=== PATIENT | female | born 1950 | race Hispanic/Latino ===

== ENCOUNTER 2017-11-16 23:01 | Inpatient (IN) | payer MEDICARE, OTHER ==
[~2017-11-16] VITALS: Ht 157.5 cm; Wt 68.2 kg
[2017-11-16 23:28] LABS: LYMPHOCYTES % (AUTO) 16.8 % (21.0-51.0); NUCLEATED RED BLOOD CELLS 0.1 % (0.0-0.19)
[2017-11-16 23:36] LABS: APPEARANCE,URINE Clear (CLEAR); BILIRUBIN,URINE Negative (NEGATIVE); COLOR,URINE Yellow (YELLOW); GLUCOSE, URINE (UA) >=1000 mg/dL (NEGATIVE); KETONES,URINE Negative (NEGATIVE); LEUKOCYTE ESTERASE ,URINE Negative (NEGATIVE); NITRATE,URINE Negative (NEGATIVE); OCCULT BLOOD,URINE Negative (NEGATIVE); PH,URINE 5.5 (5.0-8.0); PROTEIN,URINE Negative (NEGATIVE)
[2017-11-16 23:37] LABS: CREATININE 1.7 mg/dL (0.5-1.5); POTASSIUM 4.5 mmol/L (3.5-5.1)
[2017-11-16 23:41] LABS: BASOPHILS % (AUTO) 0.3 % (0.0-5.0); EOSINOPHILS % (AUTO) 1.3 % (0.0-8.0); HEMATOCRIT 28.4 % (36-48); MEAN CORPUSCULAR HEMOGLOBIN 35.9 pg (27.0-33.0); MEAN CORPUSCULAR VOLUME 99.6 fL (79-99); NEUTROPHILS % (AUTO) 75.6 % (40.0-77.0); PLATELET COUNT (AUTO) 44 K/uL (130-400); RED BLOOD CELL COUNT(AUTO) 2.85 MIL/uL (4.00-5.50); RED CELL DISTRIBUTION WIDTH 13.9 % (11.0-15.5); WHITE BLOOD COUNT (AUTO) 3.3 K/uL (4.8-10.8)
[2017-11-16 23:46] LABS: BACTERIA,URINE Rare /HPF (None Seen); MUCUS,URINE Moderate LPF (None Seen); RBC,URINE None Seen /HPF (0-1); SQUAMOUS EPITHELIAL CELL,UR Moderate /HPF (0-2); WBC,URINE None Seen /HPF (0-1)
[2017-11-16 23:51] LABS: ALBUMIN 3.3 g/dL (3.5-5.0); CREATINE KINASE MB 0.5 ng/mL (0.5-3.6); TOTAL PROTEIN, SERUM 9.5 g/dL (6.0-8.3)
[2017-11-16 23:55] LABS: PLATELET MORPHOLOGY COMMENT DECREASED
[2017-11-17] MEDS ORDERED: ONDANSETRON HCL MDV 20ML 2 MG/ML VIAL ONE (01:46)
[2017-11-17] MEDS ORDERED: SODIUM CHLORIDE 0.9% 1000ML 1,000 ML IV ONE ×2 (01:46→07:43)
[2017-11-17] MEDS ORDERED: KETOROLAC TROMETHAMINE 15MG/ML ONE (01:47)
[2017-11-17] MEDS ORDERED: ONDANSETRON ODT 4 MG TAB ONE (01:49)
[2017-11-17] MEDS ORDERED: INSULIN HUMULIN R 100 UNIT/ML 3ML ONE (02:37)
[2017-11-17] MEDS: SODIUM CHLORIDE 0.9% 1000ML 1,000 ML IV SCH ×3 (02:45→17:31)
[2017-11-17] MEDS ORDERED: KETOROLAC TROMETHAMINE 15MG/ML IM PRN (02:45)
[2017-11-17] MEDS ORDERED: POTASSIUM CHLORIDE 20MEQ/100ML 100 ML IV PRN (03:00)
[2017-11-17] MEDS ORDERED: GLUCAGON 1MG KIT 1 MG ML IM PRN (03:00)
[2017-11-17] MEDS ORDERED: POTASSIUM CHLORIDE 20 MEQ ERTAB PO PRN (03:00)
[2017-11-17] MEDS ORDERED: ONDANSETRON HCL 4 MG/2 ML VIAL IVP PRN (03:00)
[2017-11-17] MEDS ORDERED: LIDOCAINE HCL-MPF 1% 2ML VIAL IVP PRN (03:00)
[2017-11-17] MEDS ORDERED: DEXTROSE 50%-WATER 50 ML DISP.SYRIN IV PRN (03:00)
[2017-11-17] MEDS ORDERED: POTASSIUM CHLORIDE 10% ELIXIR 20 MEQ/15 ML UDCUP PO PRN (03:00)
[2017-11-17 06:25] LABS: CREATININE 1.5 mg/dL (0.5-1.5); POTASSIUM 4.5 mmol/L (3.5-5.1)
[2017-11-17] MEDS: INSULIN LISPRO 100 UNIT/ML 3ML SQ SCH ×4 (07:30→22:09)
[2017-11-17 08:33] VITALS: BP 133/58
[2017-11-17] MEDS ORDERED: ISOS30TA11 PO (08:56)
[2017-11-17] MEDS ORDERED: CHOL100040 PO (08:56)
[2017-11-17] MEDS ORDERED: ONDA4TAB4 PO (08:56)
[2017-11-17] MEDS ORDERED: INSLAN SQ (08:56)
[2017-11-17] MEDS ORDERED: FERR-82 PO (08:56)
[2017-11-17] MEDS ORDERED: PANT20TA PO (08:56)
[2017-11-17] MEDS ORDERED: LACT10SO32 PO (08:56)
[2017-11-17] MEDS ORDERED: INSU100I3 SQ (08:56)
[2017-11-17] MEDS ORDERED: FISH1CAP49 PO (08:56)
[2017-11-17] MEDS ORDERED: SPIR100T PO (08:56)
[2017-11-17] MEDS ORDERED: FURO40TA5 PO (08:56)
[2017-11-17] MEDS ORDERED: LORA10CA9 PO (08:56)
[2017-11-17] MEDS ORDERED: PROCALAMINE IV SOLUTION 1,000 ML IV SCH (12:00)
[2017-11-17 16:19] VITALS: BP 115/43
[2017-11-17 18:15] VITALS: BP 120/51
[2017-11-17 20:00] VITALS: BP 122/43
[2017-11-18] MEDS: SODIUM CHLORIDE 0.9% 1000ML 1,000 ML IV SCH ×4 (01:55→21:53)
[2017-11-18 04:00] VITALS: BP 105/45
[2017-11-18 05:30] LABS: HEMATOCRIT 25.1 % (36-48); MEAN CORPUSCULAR HEMOGLOBIN 36.9 pg (27.0-33.0); MEAN CORPUSCULAR HGB CONC 36.6 g/dL (32.0-36.0); NUCLEATED RED BLOOD CELLS 0.1 % (0.0-0.19); PLATELET COUNT (AUTO) 43 K/uL (130-400); RED BLOOD CELL COUNT(AUTO) 2.49 MIL/uL (4.00-5.50); WHITE BLOOD COUNT (AUTO) 2.5 K/uL (4.8-10.8)
[2017-11-18 05:44] LABS: CREATININE 1.3 mg/dL (0.5-1.5); POTASSIUM 4.2 mmol/L (3.5-5.1)
[2017-11-18] MEDS: INSULIN LISPRO 100 UNIT/ML 3ML SQ SCH ×4 (06:09→21:55)
[2017-11-18 07:00] VITALS: BP 97/43
[2017-11-18 08:02] LABS: EOSINOPHILS % (MANUAL) 2 % (1-6); LYMPHOCYTES % (MANUAL) 28 % (22-44); MONOCYTES % (MANUAL) 8 % (2-9); SEGMENTED NEUTROPHILS % 62 % (40-70)
[2017-11-18 08:03] LABS: MAN.DIFF COMMENT-IMPRESSION MANUAL DIFFERENTIAL; PLATELET MORPHOLOGY COMMENT MARKED DECREASED
[2017-11-18 11:00] VITALS: BP 123/44
[2017-11-18 11:00] LABS: AMYLASE 94 U/L (25-115); LIPASE 496 U/L (114-286)
[2017-11-18 15:00] VITALS: BP 115/54
[2017-11-18 20:00] VITALS: BP 116/45
[2017-11-18 22:21] LABS: % IRON SATURATION 46.9 % (22-44)
[2017-11-19] VITALS: BP 116/48
[2017-11-19 04:00] VITALS: BP 116/49
[2017-11-19 05:31] LABS: BASOPHILS % (AUTO) 0.7 % (0.0-5.0); EOSINOPHILS % (AUTO) 1.2 % (0.0-8.0); HEMATOCRIT 24.8 % (36-48); LYMPHOCYTES % (AUTO) 28.1 % (21.0-51.0); MEAN CORPUSCULAR HEMOGLOBIN 35.7 pg (27.0-33.0); MEAN CORPUSCULAR HGB CONC 35.5 g/dL (32.0-36.0); MEAN CORPUSCULAR VOLUME 100.6 fL (79-99); MONOCYTES % (AUTO) 7.6 % (3.0-13.0); NEUTROPHILS % (AUTO) 62.4 % (40.0-77.0); NUCLEATED RED BLOOD CELLS 0.1 % (0.0-0.19); PLATELET COUNT (AUTO) 41 K/uL (130-400); RED BLOOD CELL COUNT(AUTO) 2.46 MIL/uL (4.00-5.50); RED CELL DISTRIBUTION WIDTH 13.9 % (11.0-15.5); WHITE BLOOD COUNT (AUTO) 2.2 K/uL (4.8-10.8)
[2017-11-19 05:37] LABS: CREATININE 1.1 mg/dL (0.5-1.5); POTASSIUM 3.8 mmol/L (3.5-5.1)
[2017-11-19] MEDS: SODIUM CHLORIDE 0.9% 1000ML 1,000 ML IV SCH (05:38)
[2017-11-19 06:03] LABS: BAND NEUTROPHILS % (MANUAL) 4 % (0-2); LYMPHOCYTES % (MANUAL) 12 % (22-44); MONOCYTES % (MANUAL) 12 % (2-9); SEGMENTED NEUTROPHILS % 72 % (40-70)
[2017-11-19 06:04] LABS: MAN.DIFF COMMENT-IMPRESSION MANUAL DIFFERENTIAL; PLATELET MORPHOLOGY COMMENT MARKED DECREASED
[2017-11-19] MEDS: INSULIN LISPRO 100 UNIT/ML 3ML SQ SCH ×3 (06:59→16:30)
[2017-11-19 08:02] VITALS: BP 117/49
[2017-11-19 12:11] VITALS: BP 115/50
[2017-11-19 16:24] VITALS: BP 127/49
== END 2017-11-19 16:45 | disposition home or self-care (01) | DRG 439 ==
LOC: EDH 23:01 → EDHIP 11-17 02:00 → 4CH 11-17 16:57
PROVIDERS: ADMIT Family Medicine; ATTEND Family Medicine
DX: K85.90 Acute pancreatitis without necrosis or infection, unspecified (principal); D61.818 Other pancytopenia; N17.9 Acute kidney failure, unspecified; E87.8 Other disorders of electrolyte and fluid balance, not elsewhere classified; E87.1 Hypo-osmolality and hyponatremia; E11.65 Type 2 diabetes mellitus with hyperglycemia; K74.60 Unspecified cirrhosis of liver; D73.1 Hypersplenism; E78.5 Hyperlipidemia, unspecified; E86.0 Dehydration; I10 Essential (primary) hypertension; Z79.4 Long term (current) use of insulin; Z82.49 Family history of ischemic heart disease and other diseases of the circulatory system; Z83.3 Family history of diabetes mellitus
CPT/HCPCS: 36415; 74176; 80048; 80053; 80061; 81001; 82140; 82150; 82550; 82553; 82607; 82728; 82746; 82948; 83540; 83550; 83690; 84484; 85007; 85025; 85060; 93005; J1815; J1885; J7030

== ENCOUNTER → 2018-02-18 | Outpatient (CLI) | payer OTHER ==
[~2018-02-18] MED LIST: ALBUMIN (HUMAN) 25% 200 ML IV ONE; CHOL100040 PO; FERR-82 PO; FISH1CAP49 PO; FURO40TA5 PO; INSLAN SQ; INSU100I3 SQ; ISOS30TA11 PO; LACT10SO32 PO; LIDOCAINE HCL MPF 1% 5ML VIAL ONE; LORA10CA9 PO; ONDA4TAB4 PO; PANT20TA PO; SPIR100T PO
[2018-02-18 08:52] LABS: BASOPHILS % (AUTO) 0.6 % (0.0-5.0); EOSINOPHILS % (AUTO) 2.6 % (0.0-8.0); HEMATOCRIT 24.6 % (36-48); LYMPHOCYTES % (AUTO) 21.9 % (21.0-51.0); MEAN CORPUSCULAR HGB CONC 34.8 g/dL (32.0-36.0); MEAN CORPUSCULAR VOLUME 103.5 fL (79-99); NEUTROPHILS % (AUTO) 68.9 % (40.0-77.0); PLATELET COUNT (AUTO) 55 K/uL (130-400); RED BLOOD CELL COUNT(AUTO) 2.38 MIL/uL (4.00-5.50); RED CELL DISTRIBUTION WIDTH 13.9 % (11.0-15.5); WHITE BLOOD COUNT (AUTO) 2.6 K/uL (4.8-10.8)
[2018-02-18 09:04] LABS: ALBUMIN 2.8 g/dL (3.5-5.0); BILIRUBIN,TOTAL 1.1 mg/dL (0.2-1.0); CREATININE 1.2 mg/dL (0.5-1.5); TOTAL PROTEIN, SERUM 8.2 g/dL (6.0-8.3)
[2018-02-18 09:05] LABS: INR 1.02 (0.85-1.15); PROTHROMBIN TIME 10.7 SEC (9.6-11.6)
[2018-02-18 09:53] LABS: BAND NEUTROPHILS % (MANUAL) 1 % (0-2); BASOPHILS % (MANUAL) 1 % (0-2); EOSINOPHILS % (MANUAL) 1 % (1-6); LYMPHOCYTES % (MANUAL) 20 % (22-44); MONOCYTES % (MANUAL) 9 % (2-9); SEGMENTED NEUTROPHILS % 68 % (40-70)
[2018-02-18 09:54] LABS: MAN.DIFF COMMENT-IMPRESSION MANUAL DIFFERENTIAL; PLATELET MORPHOLOGY COMMENT DECREASED
[2018-02-18 13:07] LABS: BF LYMPHOCYTE 21 %; BF MESOTHELIAL 52 %; BF MONOCYTE 7 %
[2018-02-18 13:08] LABS: APPEARANCE BODY FLUID CLEAR (CLEAR); BODY FLUID WBC 91 /cu. mm.; COLOR,BODY FLUID YELLOW (LT YELLOW); SPECIMENTYPE,BODY FLUID ASCITES; TOTAL VOLUME,BODY FLUID 3500 mL
[2018-02-18 13:09] LABS: BODY FLUID RBC 118 /cu. mm.
== END | disposition home or self-care (01) ==
LOC: RAH 08:00
PROVIDERS: ATTEND Internal Medicine Gastroenterology
DX: R18.8 Other ascites (principal); I10 Essential (primary) hypertension; E78.5 Hyperlipidemia, unspecified; K21.9 Gastro-esophageal reflux disease without esophagitis; E11.9 Type 2 diabetes mellitus without complications; K74.60 Unspecified cirrhosis of liver; D64.9 Anemia, unspecified; Z79.899 Other long term (current) drug therapy; Z83.3 Family history of diabetes mellitus; Z79.4 Long term (current) use of insulin; Z98.890 Other specified postprocedural states
CPT/HCPCS: 36415; 49083; 80053; 82105; 82150; 83690; 85025; 85610; 86704; 86706; 86708; 87071; 87205; 88108; 88305; 89051; J3490; P9046

== ENCOUNTER → 2018-02-22 | Outpatient (CLI) | payer OTHER ==
[~2018-02-22] MED LIST changes: -ALBUMIN (HUMAN) 25% 200 ML IV ONE; -LIDOCAINE HCL MPF 1% 5ML VIAL ONE
== END | disposition home or self-care (01) ==
LOC: RAH 09:02
PROVIDERS: ATTEND Internal Medicine Gastroenterology
DX: R18.8 Other ascites (principal); K85.00 Idiopathic acute pancreatitis without necrosis or infection; K74.60 Unspecified cirrhosis of liver
CPT/HCPCS: 76700; 93975

== ENCOUNTER 2018-06-22 08:13 | Day surgery (SDC) | payer OTHER ==
[2018-06-22] VITALS (7 sets, daily range): BP systolic 85–108; BP diastolic 25–48
[~2018-06-22 08:13] MED LIST changes: +CALC-190 PO; -INSU100I3 SQ; +SODIUM CHLORIDE 0.9% 1000ML 1,000 ML IV ONE; +insulin SQ
[2018-06-22] MEDS ORDERED: INSU100I21 SQ (09:41)
[2018-06-22] MEDS ORDERED: NPH,100I SQ (09:41)
[2018-06-22] MEDS ORDERED: PROP10TA10 PO (09:41)
== END 2018-06-22 11:40 | disposition home or self-care (01) ==
LOC: DAH 08:13
PROVIDERS: ATTEND Internal Medicine
DX: I85.00 Esophageal varices without bleeding (principal); K74.60 Unspecified cirrhosis of liver; K31.89 Other diseases of stomach and duodenum; K25.9 Gastric ulcer, unspecified as acute or chronic, without hemorrhage or perforation; I10 Essential (primary) hypertension; E78.5 Hyperlipidemia, unspecified; E11.9 Type 2 diabetes mellitus without complications; D64.9 Anemia, unspecified; K64.9 Unspecified hemorrhoids; R18.8 Other ascites; K21.9 Gastro-esophageal reflux disease without esophagitis; Z98.890 Other specified postprocedural states; Z79.899 Other long term (current) drug therapy; Z79.4 Long term (current) use of insulin
CPT/HCPCS: 43244; 82948 ×2; 93005; A4606; J7030

== ENCOUNTER → 2018-08-13 | Outpatient (CLI) | payer OTHER ==
[~2018-08-13] MED LIST changes: +INSU100I21 SQ; -ISOS30TA11 PO; +NPH,100I SQ; -ONDA4TAB4 PO; +PROP10TA10 PO; -SODIUM CHLORIDE 0.9% 1000ML 1,000 ML IV ONE; -insulin SQ
== END | disposition home or self-care (01) ==
LOC: RAH 08:21
PROVIDERS: ATTEND Internal Medicine Gastroenterology
DX: R18.8 Other ascites (principal); Z88.9 Allergy status to unspecified drugs, medicaments and biological substances
CPT/HCPCS: 76700; 93975

== ENCOUNTER → 2019-02-01 | Outpatient (CLI) | payer OTHER | END | disposition home or self-care (01) | LOC: RAH 08:20 | PROVIDERS: ATTEND Internal Medicine Gastroenterology | DX: N28.89 Other specified disorders of kidney and ureter (principal); R16.1 Splenomegaly, not elsewhere classified; R18.8 Other ascites | CPT/HCPCS: 76700; 93975 ==

== ENCOUNTER → 2019-09-02 | Outpatient (CLI) | payer OTHER ==
[~2019-09-02] MED LIST changes: +ALBUMIN (HUMAN) 25% 200 ML IV SCH
[2019-09-02 11:28] LABS: BASOPHILS % (AUTO) 0.5 % (0.0-5.0); EOSINOPHILS % (AUTO) 0.8 % (0.0-8.0); HEMATOCRIT 33.9 % (36-48); LYMPHOCYTES % (AUTO) 12.2 % (21.0-51.0); MEAN CORPUSCULAR HEMOGLOBIN 30.7 pg (27.0-33.0); MEAN CORPUSCULAR HGB CONC 30.1 g/dL (32.0-36.0); MEAN CORPUSCULAR VOLUME 102.1 fL (79-99); MONOCYTES % (AUTO) 10.1 % (3.0-13.0); NEUTROPHILS % (AUTO) 75.9 % (40.0-77.0); PLATELET COUNT (AUTO) 40 K/uL (130-400); RED BLOOD CELL COUNT(AUTO) 3.32 MIL/uL (4.00-5.50); RED CELL DISTRIBUTION WIDTH 16.1 % (11.0-15.5); WHITE BLOOD COUNT (AUTO) 3.8 K/uL (4.8-10.8)
[2019-09-02 11:37] LABS: INR 1.14 (0.85-1.15); PROTHROMBIN TIME 11.9 SEC (9.6-11.6)
--- NOTE | 2019-09-02 11:40 | NUR ---
U/S GD PARACENTESIS PROCEDURE PERFORMED BY DR COLVIN. PUNCTURE SITE RIGHT LOWER QUADRANT OF ABDOMEN AND PATIENT TOLERATED PROCEDURE WELL. TOTAL REMOVED 8.2 LITERS OF CLOUDY YELLOW ASCITES FLUID. END OF PROCEDURE AT 1240. CATHETER REMOVED AND DRESSING APPLIED. NO BLEEDING NOTED. ALBUMIN 25% 50 GRAMS GIVEN DURING PROCEDURE PER [facility] [place] ALBUMIN PROTOCOL. DISCHARGE INSTRUCTIONS GIVEN TO PATIENT. PATIENT VERBALIZED UNDERSTANDING. PT DISCHARGED AMBULATORY, STABLE, AAO X3 WITH NO C/O PAIN. SPECIMEN SENT TO LAB.
[2019-09-02 12:02] LABS: BILIRUBIN,TOTAL 1.6 mg/dL (0.2-1.0); CREATININE 5.6 mg/dL (0.5-1.5); POTASSIUM 4.6 mmol/L (3.5-5.1); TOTAL PROTEIN, SERUM 7.6 g/dL (6.0-8.3)
[2019-09-02 13:04] LABS: PLATELET MORPHOLOGY COMMENT MARKED DECREASE
[2019-09-02 15:08] LABS: APPEARANCE BODY FLUID SLIGHTLY CLOUDY (CLEAR); COLOR,BODY FLUID YELLOW (LT YELLOW); SPECIMENTYPE,BODY FLUID ASCITES
[2019-09-02 15:09] LABS: TOTAL VOLUME,BODY FLUID 8200 mL
[2019-09-02 15:27] LABS: BODY FLUID RBC 103 /cu. mm.; BODY FLUID WBC 38 /cu. mm.
[2019-09-02 15:31] LABS: BF LYMPHOCYTE 41 %; BF MESOTHELIAL 22 %
== END ==
LOC: RAH 10:09
PROVIDERS: ATTEND Internal Medicine Gastroenterology
DX: R18.8 Other ascites (principal); K74.60 Unspecified cirrhosis of liver; I10 Essential (primary) hypertension; E78.5 Hyperlipidemia, unspecified; E11.9 Type 2 diabetes mellitus without complications; Z98.890 Other specified postprocedural states; Z79.4 Long term (current) use of insulin; Z79.899 Other long term (current) drug therapy; Z82.49 Family history of ischemic heart disease and other diseases of the circulatory system; Z83.3 Family history of diabetes mellitus
CPT/HCPCS: 36415; 49083; 80053; 85025; 85610; 87071; 87205; 89051; A4215; P9047; 88108; 88305

== ENCOUNTER → 2019-09-14 | Outpatient (CLI) | payer OTHER ==
--- NOTE | 2019-09-14 11:15 | NUR ---
U/S GD PARACENTESIS PROCEDURE PERFORMED BY DR ROMERO. PUNCTURE SITE LEFT LOWER QUADRANT OF ABDOMEN AND PATIENT TOLERATED PROCEDURE WELL. TOTAL REMOVED 9.0 LITERS OF CLOUDY YELLOW ASCITES FLUID. END OF PROCEDURE AT 1150. CATHETER REMOVED AND DRESSING APPLIED. NO BLEEDING NOTED. ALBUMIN 25% 50 GRAMS GIVEN DURING PROCEDURE [place] [facility] [place]. DISCHARGE INSTRUCTIONS GIVEN TO PATIENT. PATIENT VERBALIZED UNDERSTANDING. PT DISCHARGED AMBULATORY, STABLE, AAO X3 WITH NO C/O PAIN. PIV DC'D, BANDAID APPLIED, CLEAN DRY AND INTACT. SPECIMEN SENT TO LAB.
[2019-09-14 16:41] LABS: APPEARANCE BODY FLUID CLEAR (CLEAR); COLOR,BODY FLUID YELLOW (LT YELLOW); SPECIMENTYPE,BODY FLUID ASCITES; TOTAL VOLUME,BODY FLUID 9000 mL
[2019-09-14 16:42] LABS: BODY FLUID RBC 95 /cu. mm.; BODY FLUID WBC 39 /cu. mm.
[2019-09-14 17:11] LABS: BF LYMPHOCYTE 31 %; BF MESOTHELIAL 39 %; BF MONOCYTE 6 %
== END | disposition home or self-care (01) ==
LOC: RAH 08:00
PROVIDERS: ATTEND Internal Medicine Gastroenterology
DX: R18.8 Other ascites (principal); K74.60 Unspecified cirrhosis of liver; Z79.4 Long term (current) use of insulin; Z79.899 Other long term (current) drug therapy; Z83.3 Family history of diabetes mellitus; Z82.49 Family history of ischemic heart disease and other diseases of the circulatory system
CPT/HCPCS: 49083; 87071; 87205; 89051; 96365; A4215; P9046; 88108; 88305

== ENCOUNTER → 2019-09-21 | Outpatient (CLI) | payer OTHER, MEDICARE ==
--- NOTE | 2019-09-21 10:15 | NUR ---
U/S GD PARACENTESIS PROCEDURE PERFORMED BY DR. ROMERO. PUNCTURE SITE LEFT LOWER QUADRANT OF ABDOMEN AND PATIENT TOLERATED PROCEDURE WELL. TOTAL REMOVED 9.3 LITERS OF CLOUDY BLOOD TINGED ASCITES FLUID. END OF PROCEDURE AT 1100. CATHETER REMOVED AND DRESSING APPLIED. NO BLEEDING NOTED. ALBUMIN 25% 50 GRAMS GIVEN DURING PROCEDURE PER [facility] [place]. PIV DC'D, BANDAID APPLIED, DRESSING DRY AND INTACT. DISCHARGE INSTRUCTIONS GIVEN TO PATIENT. PATIENT VERBALIZED UNDERSTANDING. PT DISCHARGED AMBULATORY, STABLE, AAO X3 WITH NO C/O PAIN. SPECIMEN SENT TO LAB.
[2019-09-21 13:41] LABS: APPEARANCE BODY FLUID CLOUDY (CLEAR); BODY FLUID WBC 38 /cu. mm.; COLOR,BODY FLUID DARK YELLOW (LT YELLOW); SPECIMENTYPE,BODY FLUID ASCITES; TOTAL VOLUME,BODY FLUID 9300 mL
[2019-09-21 13:42] LABS: BODY FLUID RBC 4175 /cu. mm.
[2019-09-21 13:45] LABS: BF LYMPHOCYTE 19 %; BF MESOTHELIAL 67 %; BF MONOCYTE 8 %
== END ==
LOC: RAH 09:02
PROVIDERS: ATTEND Internal Medicine Gastroenterology
DX: R18.8 Other ascites (principal)
CPT/HCPCS: 49083; 87071; 87205; 88108; 89051; 96365; A4215; P9046

== ENCOUNTER → 2019-09-28 | Outpatient (CLI) | payer OTHER, MEDICARE ==
[~2019-09-28] MED LIST changes: +ALBUMIN (HUMAN) 25% 200 ML IV PRN; -ALBUMIN (HUMAN) 25% 200 ML IV SCH
--- NOTE | 2019-09-28 11:00 | NUR ---
U/S GD PARACENTESIS PROCEDURE PERFORMED BY DR. ROMERO. PUNCTURE SITE LEFT LOWER QUADRANT OF ABDOMEN AND PATIENT TOLERATED PROCEDURE WELL. TOTAL REMOVED 9.5 LITERS OF CLOUDY BLOOD TINGED ASCITES FLUID. END OF PROCEDURE AT 1030. CATHETER REMOVED AND DRESSING APPLIED. NO BLEEDING NOTED. ALBUMIN 25% 50 GRAMS GIVEN DURING PROCEDURE PER [facility] [place] ALBUMIN PROTOCOL. PIV DC'D, BANDAID APPLIED, DRESSING DRY AND INTACT. DISCHARGE INSTRUCTIONS GIVEN TO PATIENT. PATIENT VERBALIZED UNDERSTANDING. PT DISCHARGED AMBULATORY, STABLE, AAO X3 WITH NO C/O PAIN. SPECIMEN SENT TO LAB.
[2019-09-28 15:45] LABS: APPEARANCE BODY FLUID CLOUDY (CLEAR); COLOR,BODY FLUID LT YELLOW (LT YELLOW); SPECIMENTYPE,BODY FLUID ASCITES
[2019-09-28 15:46] LABS: BODY FLUID RBC 453 /cu. mm.; BODY FLUID WBC 22 /cu. mm.; TOTAL VOLUME,BODY FLUID 9500 mL
[2019-09-28 15:54] LABS: BF LYMPHOCYTE 31 %; BF MONOCYTE 2 %
== END | disposition home or self-care (01) ==
LOC: RAH 08:30
PROVIDERS: ATTEND Internal Medicine Gastroenterology
DX: R18.8 Other ascites (principal); Z79.4 Long term (current) use of insulin; Z79.899 Other long term (current) drug therapy; Z83.3 Family history of diabetes mellitus; Z82.49 Family history of ischemic heart disease and other diseases of the circulatory system
CPT/HCPCS: 49083; 87071; 87205; 88108; 89051; P9046

== ENCOUNTER → 2019-10-12 | Outpatient (CLI) | payer OTHER, MEDICARE ==
[~2019-10-12] MED LIST changes: -ALBUMIN (HUMAN) 25% 200 ML IV PRN; +ALBUMIN (HUMAN) 25% 200 ML IV SCH
[2019-10-12 08:29] LABS: BASOPHILS % (AUTO) 1.2 % (0.0-5.0); HEMATOCRIT 31.4 % (36-48); LYMPHOCYTES % (AUTO) 12.1 % (21.0-51.0); MEAN CORPUSCULAR HEMOGLOBIN 31.8 pg (27.0-33.0); MEAN CORPUSCULAR HGB CONC 31.8 g/dL (32.0-36.0); MONOCYTES % (AUTO) 12.1 % (3.0-13.0); NEUTROPHILS % (AUTO) 71.3 % (40.0-77.0); PLATELET COUNT (AUTO) 38 K/uL (130-400); RED BLOOD CELL COUNT(AUTO) 3.14 MIL/uL (4.00-5.50); RED CELL DISTRIBUTION WIDTH 17.1 % (11.0-15.5); WHITE BLOOD COUNT (AUTO) 3.4 K/uL (4.8-10.8)
[2019-10-12 08:40] LABS: INR 1.11 (0.85-1.15); PROTHROMBIN TIME 11.6 SEC (9.6-11.6)
[2019-10-12 08:43] LABS: ALBUMIN 2.9 g/dL (3.5-5.0); BILIRUBIN,TOTAL 1.7 mg/dL (0.2-1.0); CREATININE 6.8 mg/dL (0.5-1.5); POTASSIUM 4.3 mmol/L (3.5-5.1); TOTAL PROTEIN, SERUM 7.3 g/dL (6.0-8.3)
--- NOTE | 2019-10-12 10:28 | NUR ---
CRITICAL LAB VALUES RANDOM GLUCOSE 429 AND PLATELET COUNT 38. ABNORMAL RESULTS REPORTED TO DR Keysha KELLER'S OFFICE. PENDIND ORDERS
--- NOTE | 2019-10-12 10:40 | NUR ---
CALL BACK JADYN HOOD RETURNED PHONE CALL. RECOMMENDED PATIENT TO TAKE INSULIN AND SEE HER FAMILY PHYSICIAN TO MANAGE HER BLOOD SUGAR REGIMEN. PATIENT STABLE WITH NO C/O DISCOMFORT. AWAKE, ALERT AND ORIENTED. PLATELET COUNT WILL BE MANAGED AT OFFICE. OUTCOME EXPLAINED TO PATIENT AND VERBALIZED UNDERSTANDING.
--- NOTE | 2019-10-12 10:45 | NUR ---
U/S GD PARACENTESIS PROCEDURE PERFORMED BY DR. ROMERO. PUNCTURE SITE LEFT LOWER QUADRANT OF ABDOMEN AND PATIENT TOLERATED PROCEDURE WELL. TOTAL REMOVED 6.7 LITERS OF CLOUDY BLOOD TINGED ASCITES FLUID. END OF PROCEDURE AT 0940. CATHETER REMOVED AND DRESSING APPLIED. NO BLEEDING NOTED. ALBUMIN 25% 50 GRAMS GIVEN DURING PROCEDURE PER [facility] [place]BUMIN PROTOCOL. PICC LINE TO RT AC ACCESSED FOR ALBUMIN INFUSION. PICC LINE FLUSHED AND PATENT. DISCHARGE INSTRUCTIONS GIVEN TO PATIENT. PATIENT VERBALIZED UNDERSTANDING. PT DISCHARGED AMBULATORY, STABLE, AAO X3 WITH NO C/O PAIN. SPECIMEN SENT TO LAB.
[2019-10-12 13:51] LABS: APPEARANCE BODY FLUID CLEAR (CLEAR); COLOR,BODY FLUID YELLOW (LT YELLOW); SPECIMENTYPE,BODY FLUID ASCITES; TOTAL VOLUME,BODY FLUID 6700 mL
[2019-10-12 13:52] LABS: BODY FLUID RBC 365 /cu. mm.; BODY FLUID WBC 145 /cu. mm.
[2019-10-12 14:01] LABS: BF LYMPHOCYTE 70 %; BF MESOTHELIAL 28 %
== END | disposition home or self-care (01) ==
LOC: RAH 08:09
PROVIDERS: ATTEND Internal Medicine Gastroenterology
DX: R18.8 Other ascites (principal); I10 Essential (primary) hypertension; E78.5 Hyperlipidemia, unspecified; E11.9 Type 2 diabetes mellitus without complications; Z79.4 Long term (current) use of insulin; Z79.899 Other long term (current) drug therapy
CPT/HCPCS: 36415; 49083; 80053; 85025; 85610; 87071; 87205; 88108; 89051; 96365; A4215; P9046

== ENCOUNTER → 2019-10-19 | Outpatient (CLI) | payer OTHER, MEDICARE ==
[~2019-10-19] MED LIST changes: +ALBUMIN (HUMAN) 25% 200 ML IV ONE; -ALBUMIN (HUMAN) 25% 200 ML IV SCH
--- NOTE | 2019-10-19 11:15 | NUR ---
U/S GD PARACENTESIS PROCEDURE PERFORMED BY DR. ROMERO. PUNCTURE SITE LEFT LOWER QUADRANT OF ABDOMEN AND PATIENT TOLERATED PROCEDURE WELL. TOTAL REMOVED 7.8 LITERS OF CLOUDY BLOOD TINGED ASCITES FLUID. END OF PROCEDURE AT 1045. CATHETER REMOVED AND DRESSING APPLIED. NO BLEEDING NOTED. ALBUMIN 25% 50 GRAMS GIVEN DURING PROCEDURE PER [facility] [place] ALBUMIN PROTOCOL. PICC LINE TO RT AC ACCESSED FOR ALBUMIN INFUSION. PICC LINE FLUSHED AND PATENT. DISCHARGE INSTRUCTIONS GIVEN TO PATIENT. PATIENT VERBALIZED UNDERSTANDING. PT DISCHARGED AMBULATORY, STABLE, AAO X3 WITH NO C/O PAIN. SPECIMEN SENT TO LAB.
[2019-10-19 16:12] LABS: APPEARANCE BODY FLUID CLEAR (CLEAR); BODY FLUID WBC 47 /cu. mm.; COLOR,BODY FLUID YELLOW (LT YELLOW); SPECIMENTYPE,BODY FLUID ASCITES; TOTAL VOLUME,BODY FLUID 7800 mL
[2019-10-19 16:13] LABS: BODY FLUID RBC 227 /cu. mm.
[2019-10-19 16:16] LABS: BF EOSINOPHIL 1 %; BF LYMPHOCYTE 30 %; BF MESOTHELIAL 50 %; BF MONOCYTE 3 %
== END ==
LOC: RAH 08:33
PROVIDERS: ATTEND Internal Medicine Gastroenterology
DX: R18.8 Other ascites (principal)
CPT/HCPCS: 49083; 87071; 87205; 89051; A4215; P9046; 96365

== ENCOUNTER → 2019-10-27 | Outpatient (CLI) | payer OTHER, MEDICARE ==
[~2019-10-27] MED LIST changes: -ALBUMIN (HUMAN) 25% 200 ML IV ONE; +ALBUMIN (HUMAN) 25% 200 ML IV SCH
--- NOTE | 2019-10-27 08:30 | NUR ---
U/S GD PARACENTESIS PROCEDURE PERFORMED BY DR. CURRAN. PUNCTURE SITE RIGHT LOWER QUADRANT OF ABDOMEN AND PATIENT TOLERATED PROCEDURE WELL. TOTAL REMOVED 10.1 LITERS OF CLOUDY YELLOW FLUID. END OF PROCEDURE AT 0920. CATHETER REMOVED AND DRESSING APPLIED. NO BLEEDING NOTED. ALBUMIN 25% 50 GRAMS GIVEN DURING PROCEDURE PER [facility] [place]. LEFT FOREARM PIV DC'D, BANDAID APPLIED, DRESSING DRY AND INTACT. DISCHARGE INSTUCTIONS GIVEN TO PATIENT. PATIENT VERBALIZED UNDERSTANDING. PT DISCHARGED AMBULATORY, STABLE, AAO X3 WITH NO C/O PAIN. SPECIMEN SENT TO LAB.
[2019-10-27 13:31] LABS: APPEARANCE BODY FLUID CLEAR (CLEAR); BODY FLUID WBC 49 /cu. mm.; COLOR,BODY FLUID YELLOW (LT YELLOW); SPECIMENTYPE,BODY FLUID ASCITES; TOTAL VOLUME,BODY FLUID 10100 mL
[2019-10-27 13:32] LABS: BODY FLUID RBC 52 /cu. mm.
[2019-10-27 13:36] LABS: BF LYMPHOCYTE 41 %; BF MESOTHELIAL 53 %; BF MONOCYTE 6 %
== END | disposition home or self-care (01) ==
LOC: RAH 08:03
PROVIDERS: ATTEND Internal Medicine Gastroenterology
DX: R18.8 Other ascites (principal); Z79.4 Long term (current) use of insulin; Z79.899 Other long term (current) drug therapy; Z82.49 Family history of ischemic heart disease and other diseases of the circulatory system; Z83.3 Family history of diabetes mellitus
CPT/HCPCS: 49083; 87071; 87205; 88108; 89051; A4215; P9046; 96365

== ENCOUNTER → 2019-11-03 | Outpatient (CLI) | payer OTHER, MEDICARE ==
--- NOTE | 2019-11-03 10:45 | NUR ---
U/S GD PARACENTESIS PROCEDURE PERFORMED BY DR. ROMERO. PUNCTURE SITE LEFT LOWER QUADRANT OF ABDOMEN AND PATIENT TOLERATED PROCEDURE WELL. TOTAL REMOVED 9 LITERS OF CLOUDY YELLOW FLUID. END OF PROCEDURE AT 1120. CATHETER REMOVED AND DRESSING APPLIED. NO BLEEDING NOTED. ALBUMIN 25% 50 GRAMS GIVEN DURING PROCEDURE PER [facility] [place] ALBUMIN PROTOCOL. RIGHT FOREARM PIV DC'D, BANDAID APPLIED, DRESSING DRY AND INTACT. DISCHARGE INSTRUCTIONS GIVEN TO PATIENT. PATIENT VERBALIZED UNDERSTANDING. PT DISCHARGED AMBULATORY, STABLE, AAO X3 WITH NO C/O PAIN. SPECIMEN SENT TO LAB.
[2019-11-03 14:27] LABS: APPEARANCE BODY FLUID CLEAR (CLEAR); COLOR,BODY FLUID YELLOW (LT YELLOW); SPECIMENTYPE,BODY FLUID ASCITES; TOTAL VOLUME,BODY FLUID 9000 mL
[2019-11-03 14:30] LABS: BODY FLUID RBC 85 /cu. mm.; BODY FLUID WBC 34 /cu. mm.
[2019-11-03 14:33] LABS: BF LYMPHOCYTE 23 %; BF MESOTHELIAL 65 %; BF MONOCYTE 9 %
== END | disposition home or self-care (01) ==
LOC: RAH 09:41
PROVIDERS: ATTEND Internal Medicine Gastroenterology
DX: R18.8 Other ascites (principal); I10 Essential (primary) hypertension; E78.5 Hyperlipidemia, unspecified; E11.9 Type 2 diabetes mellitus without complications; K74.60 Unspecified cirrhosis of liver; Z79.4 Long term (current) use of insulin; Z79.899 Other long term (current) drug therapy
CPT/HCPCS: 49083; 87071; 87205; 89051; 96365; A4215; P9046

== ENCOUNTER → 2019-11-17 | Outpatient (CLI) | payer OTHER, MEDICARE ==
[2019-11-17 10:23] LABS: BASOPHILS % (AUTO) 0.6 % (0.0-5.0); EOSINOPHILS % (AUTO) 1.7 % (0.0-8.0); HEMATOCRIT 26.2 % (36-48); LYMPHOCYTES % (AUTO) 9.2 % (21.0-51.0); MEAN CORPUSCULAR HEMOGLOBIN 32.7 pg (27.0-33.0); MEAN CORPUSCULAR HGB CONC 30.9 g/dL (32.0-36.0); MEAN CORPUSCULAR VOLUME 105.6 fL (79-99); MONOCYTES % (AUTO) 8.6 % (3.0-13.0); NEUTROPHILS % (AUTO) 79.6 % (40.0-77.0); PLATELET COUNT (AUTO) 39 K/uL (130-400); RED BLOOD CELL COUNT(AUTO) 2.48 MIL/uL (4.00-5.50); RED CELL DISTRIBUTION WIDTH 17.7 % (11.0-15.5); WHITE BLOOD COUNT (AUTO) 3.5 K/uL (4.8-10.8)
[2019-11-17 10:33] LABS: INR 1.06 (0.85-1.15); PROTHROMBIN TIME 11.4 SEC (9.6-11.6)
[2019-11-17 10:37] LABS: ALBUMIN 3.1 g/dL (3.5-5.0); BILIRUBIN,TOTAL 0.9 mg/dL (0.2-1.0); CREATININE 4.4 mg/dL (0.5-1.5); POTASSIUM 4.2 mmol/L (3.5-5.1); TOTAL PROTEIN, SERUM 7.3 g/dL (6.0-8.3)
--- NOTE | 2019-11-17 12:15 | NUR ---
U/S GD PARACENTESIS PROCEDURE PERFORMED BY DR. Hemanth COLVIN. PUNCTURE SITE LEFT LOWER QUADRANT OF ABDOMEN AND PATIENT TOLERATED PROCEDURE WELL. TOTAL REMOVED 3.6 LITERS OF CLOUDY YELLOW FLUID. END OF PROCEDURE AT 1145. CATHETER REMOVED AND DRESSING APPLIED. NO BLEEDING NOTED. ALBUMIN 25% 25 GRAMS GIVEN DURING PROCEDURE [place] [facility] [place]. LEFT FOREARM PIV DC'D, BANDAID APPLIED, DRESSING DRY AND INTACT. DISCHARGE INSTRUCTIONS GIVEN TO PATIENT. PATIENT VERBALIZED UNDERSTANDING. PT DISCHARGED AMBULATORY, STABLE, AAO X3 WITH NO C/O PAIN. SPECIMEN SENT TO LAB.
[2019-11-17 13:27] LABS: APPEARANCE BODY FLUID CLEAR (CLEAR); SPECIMENTYPE,BODY FLUID ASCITES
[2019-11-17 13:28] LABS: BODY FLUID RBC 1212 /cu. mm.; BODY FLUID WBC 55 /cu. mm.; COLOR,BODY FLUID YELLOW (LT YELLOW)
[2019-11-17 13:51] LABS: BF LYMPHOCYTE 26 %; BF MESOTHELIAL 66 %; BF MONOCYTE 8 %
[2019-11-17 13:55] LABS: TOTAL VOLUME,BODY FLUID 3600 mL
== END | disposition home or self-care (01) ==
LOC: RAH 09:51
PROVIDERS: ATTEND Internal Medicine Gastroenterology
DX: R18.8 Other ascites (principal)
CPT/HCPCS: 36415; 49083; 80053; 85025; 85610; 87071; 87205; 89051; A4215; 96365; P9046

== ENCOUNTER → 2019-11-24 | Outpatient (CLI) | payer OTHER, MEDICARE ==
--- NOTE | 2019-11-24 08:25 | NUR ---
U/S GD PARACENTESIS PROCEDURE PERFORMED BY DR. CISNEROS. PUNCTURE SITE LEFT LOWER QUADRANT OF ABDOMEN AND PATIENT TOLERATED PROCEDURE WELL. TOTAL REMOVED 10.5 LITERS OF CLOUDY YELLOW FLUID. END OF PROCEDURE AT 0915. CATHETER REMOVED AND DRESSING APPLIED. NO BLEEDING NOTED. ALBUMIN 25% 50 GRAMS GIVEN DURING PROCEDURE PER [facility] [place]. RIGHT FOREARM PIV DC'D, BANDAID APPLIED, DRESSING DRY AND INTACT. DISCHARGE INSTUCTIONS GIVEN TO PATIENT. PATIENT VERBALIZED UNDERSTANDING. PT DISCHARGED AMBULATORY, STABLE, AAO X3 WITH NO C/O PAIN. SPECIMEN SENT TO LAB.
[2019-11-24 17:44] LABS: APPEARANCE BODY FLUID CLEAR (CLEAR); COLOR,BODY FLUID LT YELLOW (LT YELLOW); SPECIMENTYPE,BODY FLUID ASCITES
[2019-11-24 17:45] LABS: BODY FLUID WBC 9 /cu. mm.; TOTAL VOLUME,BODY FLUID 10500 mL
[2019-11-24 17:46] LABS: BODY FLUID RBC 36 /cu. mm.
[2019-11-24 18:09] LABS: BF LYMPHOCYTE 35 %; BF MESOTHELIAL 30 %
== END | disposition home or self-care (01) ==
LOC: RAH 07:32
PROVIDERS: ATTEND Internal Medicine Gastroenterology
DX: R18.8 Other ascites (principal); Z79.4 Long term (current) use of insulin; Z79.899 Other long term (current) drug therapy; Z82.49 Family history of ischemic heart disease and other diseases of the circulatory system; Z83.3 Family history of diabetes mellitus
CPT/HCPCS: 49083; 87071; 87205; 89051; A4215; P9046

== ENCOUNTER → 2019-12-01 | Outpatient (CLI) | payer OTHER, MEDICARE ==
--- NOTE | 2019-12-01 09:15 | NUR ---
U/S GD PARACENTESIS PROCEDURE PERFORMED BY DR. Mayi CARDONA. PUNCTURE SITE LEFT LOWER QUADRANT OF ABDOMEN AND PATIENT TOLERATED PROCEDURE WELL. TOTAL REMOVED 9 LITERS OF CLOUDY YELLOW FLUID. END OF PROCEDURE AT 0845. CATHETER REMOVED AND DRESSING APPLIED. NO BLEEDING NOTED. ALBUMIN 25% 50 GRAMS GIVEN DURING PROCEDURE PER [facility] [place]. RIGHT FOREARM PIV DC'D, BANDAID APPLIED, DRESSING DRY AND INTACT. DISCHARGE INSTUCTIONS GIVEN TO PATIENT. PATIENT VERBALIZED UNDERSTANDING. PT DISCHARGED AMBULATORY, STABLE, AAO X3 WITH NO C/O PAIN. SPECIMEN SENT TO LAB.
[2019-12-01 12:07] LABS: APPEARANCE BODY FLUID CLEAR (CLEAR); BODY FLUID WBC 30 /cu. mm.; COLOR,BODY FLUID YELLOW (LT YELLOW); SPECIMENTYPE,BODY FLUID ASCITES; TOTAL VOLUME,BODY FLUID 9000 mL
[2019-12-01 12:08] LABS: BODY FLUID RBC 550 /cu. mm.
[2019-12-01 12:38] LABS: BF LYMPHOCYTE 54 %; BF MESOTHELIAL 42 %
== END ==
LOC: RAH 07:45
PROVIDERS: ATTEND Internal Medicine Gastroenterology
DX: R18.8 Other ascites (principal)
CPT/HCPCS: 49083; 87071; 87205; 89051; 96365; P9046

== ENCOUNTER → 2019-12-08 | Outpatient (CLI) | payer OTHER, MEDICARE ==
--- NOTE | 2019-12-08 10:15 | NUR ---
U/S GD PARACENTESIS PROCEDURE PERFORMED BY DR. Tal SALGADO. PUNCTURE SITE LEFT LOWER QUADRANT OF ABDOMEN AND PATIENT TOLERATED PROCEDURE WELL. TOTAL REMOVED 9.5 LITERS OF CLEAR YELLOW FLUID. END OF PROCEDURE AT 0945. CATHETER REMOVED AND DRESSING APPLIED. NO BLEEDING NOTED. ALBUMIN 25% 50 GRAMS GIVEN DURING PROCEDURE PER [facility] [place] ALBUMIN PROTOCOL. RIGHT FOREARM PIV DC'D, BANDAID APPLIED, DRESSING DRY AND INTACT. DISCHARGE INSTUCTIONS GIVEN TO PATIENT. PATIENT VERBALIZED UNDERSTANDING. PT DISCHARGED AMBULATORY, STABLE, AAO X3 WITH NO C/O PAIN. SPECIMEN SENT TO LAB.
[2019-12-08 13:30] LABS: APPEARANCE BODY FLUID CLEAR (CLEAR); BODY FLUID RBC 144 /cu. mm.; BODY FLUID WBC 18 /cu. mm.; COLOR,BODY FLUID YELLOW (LT YELLOW); SPECIMENTYPE,BODY FLUID ASCITES; TOTAL VOLUME,BODY FLUID 9500 mL
[2019-12-08 14:51] LABS: BF LYMPHOCYTE 34 %; BF MESOTHELIAL 43 %; BF MONOCYTE 23 %
== END ==
LOC: RAH 07:45
PROVIDERS: ATTEND Internal Medicine Gastroenterology
DX: R18.8 Other ascites (principal)
CPT/HCPCS: 49083; 87071; 87205; 89051; A4215; P9046

== ENCOUNTER → 2019-12-15 | Outpatient (CLI) | payer OTHER, MEDICARE ==
[~2019-12-15] MED LIST changes: +ALBUMIN (HUMAN) 25% 200 ML IV PRN; -ALBUMIN (HUMAN) 25% 200 ML IV SCH
--- NOTE | 2019-12-15 08:45 | NUR ---
U/S GD PARACENTESIS PROCEDURE PERFORMED BY DR. HERNANDES. PUNCTURE SITE RIGHT LOWER QUADRANT OF ABDOMEN AND PATIENT TOLERATED PROCEDURE WELL. TOTAL REMOVED 10.4 LITERS OF CLOUDY YELLOW FLUID. END OF PROCEDURE AT 0935. CATHETER REMOVED AND DRESSING APPLIED. NO BLEEDING NOTED. ALBUMIN 25% 50 GRAMS GIVEN DURING PROCEDURE PER [facility] [place]BUMIN PROTOCOL. LEFT FOREARM PIV DC'D, BANDAID APPLIED, DRESSING DRY AND INTACT. DISCHARGE INSTRUCTIONS GIVEN TO PATIENT. PATIENT VERBALIZED UNDERSTANDING. PT DISCHARGED VIA W/C, STABLE, AAO X3 WITH NO C/O PAIN @ 1005. SPECIMEN SENT TO LAB.
[2019-12-15 12:39] LABS: APPEARANCE BODY FLUID CLEAR (CLEAR); BODY FLUID WBC 43 /cu. mm.; COLOR,BODY FLUID YELLOW (LT YELLOW); SPECIMENTYPE,BODY FLUID ASCITES; TOTAL VOLUME,BODY FLUID 10500 mL
[2019-12-15 12:40] LABS: BODY FLUID RBC 28 /cu. mm.
[2019-12-15 13:01] LABS: BF LYMPHOCYTE 29 %; BF MESOTHELIAL 51 %; BF MONOCYTE 17 %
== END ==
LOC: RAH 07:49
PROVIDERS: ATTEND Internal Medicine Gastroenterology
DX: R18.8 Other ascites (principal)
CPT/HCPCS: 49083; 87071; 87205; 89051; A4215; P9046; 96365

== ENCOUNTER → 2019-12-22 | Outpatient (CLI) | payer OTHER, MEDICARE ==
[~2019-12-22] MED LIST changes: -ALBUMIN (HUMAN) 25% 200 ML IV PRN; +ALBUMIN (HUMAN) 25% 200 ML IV SCH; +FISH1CAP27 PO; +MIDO10TA PO; +ONDA4TAB10 PO; +RIFA550T PO; +SPIR50TA PO; +VITA-328 PO; +VITAD50000 PO
[2019-12-22 09:23] LABS: BASOPHILS % (AUTO) 0.5 % (0.0-5.0); EOSINOPHILS % (AUTO) 3.3 % (0.0-8.0); HEMATOCRIT 26.5 % (36-48); LYMPHOCYTES % (AUTO) 9.1 % (21.0-51.0); MEAN CORPUSCULAR HEMOGLOBIN 33.2 pg (27.0-33.0); MEAN CORPUSCULAR HGB CONC 31.7 g/dL (32.0-36.0); MEAN CORPUSCULAR VOLUME 104.7 fL (79-99); MONOCYTES % (AUTO) 8.1 % (3.0-13.0); NEUTROPHILS % (AUTO) 78.7 % (40.0-77.0); PLATELET COUNT (AUTO) 50 K/uL (130-400); RED BLOOD CELL COUNT(AUTO) 2.53 MIL/uL (4.00-5.50); WHITE BLOOD COUNT (AUTO) 5.8 K/uL (4.8-10.8)
[2019-12-22 09:30] LABS: INR 1.15 (0.85-1.15); PARTIAL THROMBOPLASTIN TIME 33.8 SEC (26.3-35.5); PROTHROMBIN TIME 12.4 SEC (9.6-11.6)
[2019-12-22 09:33] LABS: ALBUMIN 2.7 g/dL (3.5-5.0); BILIRUBIN,TOTAL 0.9 mg/dL (0.2-1.0); CREATININE 6.8 mg/dL (0.5-1.5)
--- NOTE | 2019-12-22 10:15 | NUR ---
U/S GD PARACENTESIS PROCEDURE PERFORMED BY DR. Tal SALGADO. PUNCTURE SITE LEFT LOWER QUADRANT OF ABDOMEN AND PATIENT TOLERATED PROCEDURE WELL. TOTAL REMOVED 11 LITERS OF CLOUDY YELLOW FLUID. END OF PROCEDURE AT 0930. CATHETER REMOVED AND DRESSING APPLIED. NO BLEEDING NOTED. ALBUMIN 25% 50 GRAMS GIVEN DURING PROCEDURE PER [facility] [place] ALBUMIN PROTOCOL. LEFT FOREARM PIV DC'D, BANDAID APPLIED, DRESSING DRY AND INTACT. DISCHARGE INSTRUCTIONS GIVEN TO PATIENT. PATIENT VERBALIZED UNDERSTANDING. PT DISCHARGED VIA W/C, STABLE, AAO X3 WITH NO C/O PAIN @ 1005. SPECIMEN SENT TO LAB.
[2019-12-22 13:45] LABS: APPEARANCE BODY FLUID CLEAR (CLEAR); COLOR,BODY FLUID YELLOW (LT YELLOW); SPECIMENTYPE,BODY FLUID ASCITES
[2019-12-22 13:47] LABS: TOTAL VOLUME,BODY FLUID 11000 mL
[2019-12-22 13:48] LABS: BODY FLUID RBC 113 /cu. mm.; BODY FLUID WBC 283 /cu. mm.
[2019-12-22 13:53] LABS: BF LYMPHOCYTE 16 %; BF MESOTHELIAL 4 %; BF MONOCYTE 31 %
== END | disposition home or self-care (01) ==
LOC: RAH 08:00
PROVIDERS: ATTEND Internal Medicine Gastroenterology
DX: R18.8 Other ascites (principal); Z79.01 Long term (current) use of anticoagulants
CPT/HCPCS: 36415; 49083; 80053; 85025; 85610; 85730; 87071; 87205; 88112; 88305; 89051; A4215; 96365; P9046

== ENCOUNTER 2020-01-03 10:23 | Inpatient (IN) | payer OTHER, MEDICARE ==
[~2020-01-03] VITALS: Ht 152.4 cm; Wt 62.9 kg
[~2020-01-03 10:23] MED LIST changes: -ALBUMIN (HUMAN) 25% 200 ML IV SCH; -FISH1CAP27 PO; -MIDO10TA PO; -ONDA4TAB10 PO; -RIFA550T PO; -SPIR50TA PO; -VITA-328 PO; -VITAD50000 PO
[2020-01-03 11:16] LABS: BASOPHILS % (AUTO) 0.3 % (0.0-5.0); EOSINOPHILS % (AUTO) 0.6 % (0.0-8.0); HEMATOCRIT 23.1 % (36-48); LYMPHOCYTES % (AUTO) 9.5 % (21.0-51.0); MEAN CORPUSCULAR HEMOGLOBIN 31.4 pg (27.0-33.0); MEAN CORPUSCULAR HGB CONC 31.2 g/dL (32.0-36.0); MEAN CORPUSCULAR VOLUME 100.9 fL (79-99); MONOCYTES % (AUTO) 8.3 % (3.0-13.0); PLATELET COUNT (AUTO) 42 K/uL (130-400); RED BLOOD CELL COUNT(AUTO) 2.29 MIL/uL (4.00-5.50); RED CELL DISTRIBUTION WIDTH 16.4 % (11.0-15.5); WHITE BLOOD COUNT (AUTO) 3.2 K/uL (4.8-10.8)
[2020-01-03 11:23] LABS: CREATININE 4.9 mg/dL (0.5-1.5); POTASSIUM 3.4 mmol/L (3.5-5.1)
[2020-01-03 11:28] LABS: ALBUMIN 2.4 g/dL (3.5-5.0); BILIRUBIN,DIRECT 0.3 mg/dL (0.0-0.3); BILIRUBIN,TOTAL 0.9 mg/dL (0.2-1.0); TOTAL PROTEIN, SERUM 6.5 g/dL (6.0-8.3)
[2020-01-03 11:41] LABS: INR 1.09 (0.85-1.15); PARTIAL THROMBOPLASTIN TIME 29.4 SEC (26.3-35.5); PROTHROMBIN TIME 11.7 SEC (9.6-11.6)
[2020-01-03] MEDS ORDERED: FENTANYL CITRATE PF 50 MCG/1 ML 2ML VIAL ONE (13:11)
[2020-01-03] MEDS ORDERED: ALBUMIN (HUMAN) 25% 100 ML IV ONE (15:19)
--- NOTE | 2020-01-03 15:57 | NUR ---
Paracentesis Per Frida with [facility], patient was scheduled for a paracentesis. States patient was on palliative care. Patient still in ED Holding. Called 1057 and spoke to Parish and informed of the above and asked if nurse would communicate this with PMD to order this admit. CD
--- NOTE | 2020-01-03 16:36 | NUR ---
U/S GD PARACENTESIS PROCEDURE PERFORMED BY DR. Dorie CISNEROS. PUNCTURE SITE LEFT LOWER QUADRANT OF ABDOMEN AND PATIENT TOLERATED PROCEDURE WELL. TOTAL REMOVED 11.5 LITERS OF CLOUDY YELLOW FLUID. END OF PROCEDURE AT 1615. CATHETER REMOVED AND DRESSING APPLIED. NO BLEEDING NOTED. ALBUMIN 25% 50 GRAMS GIVEN DURING PROCEDURE PER [facility] [place]BUMIN PROTOCOL. REPORT GIVEN TO PAT SCHWARTZ AND PATIENT TRANSPORTED TO ED RM9 VIA STRETCHER AT 1635. PATIENT STABLE, AAO X3 WITH NO C/O PAIN. SPECIMEN SENT TO LAB.
[2020-01-03] MEDS ORDERED: NITROGLYCERIN 0.4 MG SL TAB SL PRN (16:45)
[2020-01-03] MEDS ORDERED: GUAIFENESIN-DM 200/20 MG 10 ML PO PRN (16:45)
[2020-01-03] MEDS ORDERED: ONDANSETRON HCL 4 MG/2 ML VIAL IV PRN (16:45)
[2020-01-03] MEDS ORDERED: KETOROLAC TROMETHAMINE 15MG/ML ONE (17:16)
[2020-01-03 17:20] LABS: BASOPHILS % (AUTO) 0.3 % (0.0-5.0); EOSINOPHILS % (AUTO) 0.9 % (0.0-8.0); LYMPHOCYTES % (AUTO) 15.6 % (21.0-51.0); MEAN CORPUSCULAR HEMOGLOBIN 31.7 pg (27.0-33.0); MEAN CORPUSCULAR HGB CONC 31.6 g/dL (32.0-36.0); MEAN CORPUSCULAR VOLUME 100.5 fL (79-99); MONOCYTES % (AUTO) 9.8 % (3.0-13.0); NEUTROPHILS % (AUTO) 73.1 % (40.0-77.0); PLATELET COUNT (AUTO) 41 K/uL (130-400); RED BLOOD CELL COUNT(AUTO) 2.05 MIL/uL (4.00-5.50); RED CELL DISTRIBUTION WIDTH 16.6 % (11.0-15.5); WHITE BLOOD COUNT (AUTO) 3.3 K/uL (4.8-10.8)
[2020-01-03 17:25] LABS: HEMATOCRIT 20.6 % (36-48)
[2020-01-03] MEDS ORDERED: MIDODRINE HCL 5 MG TABLET ONE (17:43)
[2020-01-03 18:32] LABS: APPEARANCE BODY FLUID CLEAR (CLEAR); COLOR,BODY FLUID YELLOW (LT YELLOW); SPECIMENTYPE,BODY FLUID ASCITES
[2020-01-03 18:33] LABS: BODY FLUID WBC 19 /cu. mm.; TOTAL VOLUME,BODY FLUID 11500 mL
[2020-01-03 18:34] LABS: BODY FLUID RBC 15 /cu. mm.
[2020-01-03 18:54] LABS: BF LYMPHOCYTE 20 %; BF MESOTHELIAL 59 %; BF MONOCYTE 1 %
[2020-01-03] MEDS: INSULIN HUMULIN R 100 UNIT/ML 3ML SQ SCH (21:00)
[2020-01-03] MEDS ORDERED: FAMOTIDINE/PF 20 MG/2 ML VIAL IV ONE (22:46)
[2020-01-03] MEDS ORDERED: INSULIN HUMULIN R 100 UNIT/ML 3ML ONE (22:47)
[2020-01-04] MEDS ORDERED: MIDODRINE HCL 5 MG TABLET ONE ×2 (03:10→08:26)
[2020-01-04 03:38] LABS: BASOPHILS % (AUTO) 0.2 % (0.0-5.0); EOSINOPHILS % (AUTO) 0.8 % (0.0-8.0); HEMATOCRIT 24.7 % (36-48); LYMPHOCYTES % (AUTO) 8.9 % (21.0-51.0); MEAN CORPUSCULAR HEMOGLOBIN 31.6 pg (27.0-33.0); MEAN CORPUSCULAR HGB CONC 32.4 g/dL (32.0-36.0); MEAN CORPUSCULAR VOLUME 97.6 fL (79-99); MONOCYTES % (AUTO) 6.8 % (3.0-13.0); NEUTROPHILS % (AUTO) 83.1 % (40.0-77.0); PLATELET COUNT (AUTO) 53 K/uL (130-400); RED BLOOD CELL COUNT(AUTO) 2.53 MIL/uL (4.00-5.50); RED CELL DISTRIBUTION WIDTH 17.2 % (11.0-15.5); WHITE BLOOD COUNT (AUTO) 5.3 K/uL (4.8-10.8)
[2020-01-04 03:47] LABS: CREATININE 5.6 mg/dL (0.5-1.5); POTASSIUM 3.8 mmol/L (3.5-5.1)
[2020-01-04 03:59] LABS: BILIRUBIN,TOTAL 2.3 mg/dL (0.2-1.0); MAGNESIUM 2.2 mg/dL (1.80-2.40); PHOSPHORUS 6.7 mg/dL (2.5-4.9); THYROID STIMULATING HORMONE 3.1 uIU/mL (0.36-3.74); TOTAL PROTEIN, SERUM 6.4 g/dL (6.0-8.3)
[2020-01-04] MEDS: INSULIN HUMULIN R 100 UNIT/ML 3ML SQ SCH ×4 (07:30→21:00)
[2020-01-04] MEDS ORDERED: HEPARIN SODIUM 5000UNIT/ML 1ML VIAL IJ PRN ×2 (08:30)
[2020-01-04] MEDS ORDERED: 0.9% SODIUM CHLORIDE 1000 ML IV BAG IV PRN (08:30)
[2020-01-04] MEDS ORDERED: SODIUM CHLORIDE 0.9% 1000ML 1,000 ML IV PRN (08:30)
[2020-01-04] MEDS ORDERED: ALBUMIN (HUMAN) 25% 100 ML IV ONE (08:33)
[2020-01-04] MEDS ORDERED: FAMOTIDINE/PF 20 MG/2 ML VIAL IV ONE (13:01)
[2020-01-04 14:12] LABS: HEMATOCRIT 23.7 % (36-48)
--- NOTE | 2020-01-04 14:20 | NUR ---
[facility] CM spoke to pt's daughter in law Azeb [phone] discussed dc plans. Per daughter in law pt is independent prior to admission, lives at home w/2 sons and their family a total of 12. Pt has a walker, wheelchair, shower chair, goes to [facility] between 10-2pm. Verbalized pt [facility] [place] [facility] [place]esis but fell on her way during this admission. Denies any other equipments/services. Daughter in law Azeb and family able to assist with transportation and needs as necessary. DC plan to home once stable. CM to cont to follow up. Addendum: 01/04/20 at 1422 by ZUHAIR ALVARADO LVN CM Amended: Links added.
[2020-01-04 15:25] VITALS: BP 74/37
[2020-01-04 16:30] VITALS: BP 80/40
[2020-01-04] MEDS ORDERED: MIDODRINE HCL 5 MG TABLET PO SCH (16:30)
--- NOTE | 2020-01-04 17:10 | NUR ---
CONSULTS CONSULTS FOR ORTHO, PULMONARY, AND NEPHROLOGY CONFIRMED AT THIS TIME.
--- NOTE | 2020-01-04 18:00 | NUR ---
admission assessment multiple calls and voice mail messages left with pt's daughter in law Azeb which is floral designer salesperson regarding needing information for admission process. pt poor historian, unable to answer questions for admission at this time
[2020-01-04 20:00] VITALS: BP 72/42
[2020-01-04] MEDS: MIDODRINE HCL 5 MG TABLET PO SCH (21:39)
--- NOTE | 2020-01-04 21:40 | NUR ---
hospitalist paged for low sbp patient bps running low, had been running low since she arrived informed aj of current vs 70/40 manual bp patient is warm and dry, sr 94, 99% oxygen saturation informed aj of dr west note to restart midodrine but it was not ordered orders to restart midodrine and continue to monitor patient is asymptomatic and it has been her current trend
[2020-01-05] VITALS (7 sets, daily range): BP systolic 70–81; BP diastolic 31–50
[2020-01-05 04:32] LABS: BASOPHILS % (AUTO) 0.3 % (0.0-5.0); EOSINOPHILS % (AUTO) 0.2 % (0.0-8.0); LYMPHOCYTES % (AUTO) 7.1 % (21.0-51.0); MEAN CORPUSCULAR HEMOGLOBIN 31.5 pg (27.0-33.0); MEAN CORPUSCULAR HGB CONC 31.6 g/dL (32.0-36.0); MEAN CORPUSCULAR VOLUME 99.6 fL (79-99); MONOCYTES % (AUTO) 5.9 % (3.0-13.0); NEUTROPHILS % (AUTO) 86.2 % (40.0-77.0); PLATELET COUNT (AUTO) 64 K/uL (130-400); RED BLOOD CELL COUNT(AUTO) 2.51 MIL/uL (4.00-5.50); RED CELL DISTRIBUTION WIDTH 18.6 % (11.0-15.5); WHITE BLOOD COUNT (AUTO) 10.5 K/uL (4.8-10.8)
[2020-01-05 04:57] LABS: PLATELET MORPHOLOGY LARGE PLTS PRESENT
[2020-01-05 05:04] LABS: BILIRUBIN,TOTAL 2.7 mg/dL (0.2-1.0); CREATININE 4.1 mg/dL (0.5-1.5); MAGNESIUM 2.2 mg/dL (1.80-2.40); PHOSPHORUS 6.1 mg/dL (2.5-4.9); POTASSIUM 4.1 mmol/L (3.5-5.1); TOTAL PROTEIN, SERUM 6.3 g/dL (6.0-8.3)
[2020-01-05] MEDS ORDERED: ACETAMINOPHEN-CODEINE 300/30MG TAB PO PRN ×2 (06:45)
[2020-01-05] MEDS: INSULIN HUMULIN R 100 UNIT/ML 3ML SQ SCH ×4 (07:30→20:38)
[2020-01-05 08:11] LABS: HEPATITIS A ANTIBODY IGM Negative (Negative); HEPATITIS B CORE IGM Negative (Negative); HEPATITIS Bs ANTIGEN SCREEN P Negative (Negative)
[2020-01-05] MEDS: MIDODRINE HCL 5 MG TABLET PO SCH ×3 (08:39→20:37)
[2020-01-05] MEDS: FAMOTIDINE/PF 20 MG/2 ML VIAL IV SCH ×2 (08:39→08:40)
[2020-01-05] MEDS: LACTULOSE 20 GM/30 ML UDCUP PO SCH ×3 (10:23→22:00)
[2020-01-05] MEDS ORDERED: MIDO10TA PO ×2 (16:02→16:05)
[2020-01-05] MEDS ORDERED: VITAD50000 PO (16:04)
[2020-01-05] MEDS ORDERED: ONDA4TAB10 PO (16:06)
[2020-01-05] MEDS ORDERED: SPIR50TA PO (16:08)
[2020-01-05] MEDS ORDERED: RIFA550T PO (16:09)
[2020-01-05] MEDS ORDERED: VITA-328 PO (16:11)
[2020-01-05] MEDS ORDERED: FISH1CAP27 PO (16:12)
[2020-01-06] MEDS: LACTULOSE 20 GM/30 ML UDCUP PO SCH ×4 (03:53→21:06)
[2020-01-06 04:03] VITALS: BP 86/59
[2020-01-06 05:29] LABS: BASOPHILS % (AUTO) 0.2 % (0.0-5.0); EOSINOPHILS % (AUTO) 0.6 % (0.0-8.0); LYMPHOCYTES % (AUTO) 9.6 % (21.0-51.0); MEAN CORPUSCULAR HGB CONC 31.5 g/dL (32.0-36.0); MEAN CORPUSCULAR VOLUME 101.6 fL (79-99); NEUTROPHILS % (AUTO) 82.3 % (40.0-77.0); PLATELET COUNT (AUTO) 60 K/uL (130-400); RED BLOOD CELL COUNT(AUTO) 2.56 MIL/uL (4.00-5.50); RED CELL DISTRIBUTION WIDTH 18.7 % (11.0-15.5); WHITE BLOOD COUNT (AUTO) 6.4 K/uL (4.8-10.8)
[2020-01-06 05:42] LABS: BILIRUBIN,TOTAL 1.9 mg/dL (0.2-1.0); CREATININE 6.1 mg/dL (0.5-1.5); POTASSIUM 4.3 mmol/L (3.5-5.1); TOTAL PROTEIN, SERUM 6.5 g/dL (6.0-8.3)
[2020-01-06 05:44] LABS: INR 1.4 (0.85-1.15); PROTHROMBIN TIME 14.9 SEC (9.6-11.6)
[2020-01-06] MEDS: INSULIN HUMULIN R 100 UNIT/ML 3ML SQ SCH ×4 (06:49→21:00)
[2020-01-06] MEDS: KETOROLAC TROMETHAMINE 15MG/ML IV PRN (06:59)
[2020-01-06 07:00] VITALS: BP 106/38
[2020-01-06] MEDS: FAMOTIDINE/PF 20 MG/2 ML VIAL IV SCH (09:43)
[2020-01-06] MEDS: MIDODRINE HCL 5 MG TABLET PO SCH ×3 (09:43→21:06)
[2020-01-06 11:00] VITALS: BP 78/50
[2020-01-06 16:00] VITALS: BP 95/47
[2020-01-06] MEDS: ACETAMINOPHEN 325 MG TAB PO PRN (17:16)
[2020-01-06 19:39] VITALS: BP 99/49
[2020-01-06 23:47] VITALS: BP 109/49
[2020-01-07] VITALS (7 sets, daily range): BP systolic 71–82; BP diastolic 31–58
[2020-01-07 03:48] LABS: BASOPHILS % (AUTO) 0.3 % (0.0-5.0); EOSINOPHILS % (AUTO) 1.7 % (0.0-8.0); HEMATOCRIT 22.4 % (36-48); LYMPHOCYTES % (AUTO) 10.9 % (21.0-51.0); MEAN CORPUSCULAR HEMOGLOBIN 31.1 pg (27.0-33.0); MEAN CORPUSCULAR HGB CONC 31.3 g/dL (32.0-36.0); MEAN CORPUSCULAR VOLUME 99.6 fL (79-99); MONOCYTES % (AUTO) 9.2 % (3.0-13.0); NEUTROPHILS % (AUTO) 77.6 % (40.0-77.0); PLATELET COUNT (AUTO) 39 K/uL (130-400); RED BLOOD CELL COUNT(AUTO) 2.25 MIL/uL (4.00-5.50); RED CELL DISTRIBUTION WIDTH 18.8 % (11.0-15.5); WHITE BLOOD COUNT (AUTO) 3.5 K/uL (4.8-10.8)
[2020-01-07 04:04] LABS: CREATININE 3.9 mg/dL (0.5-1.5); POTASSIUM 3.2 mmol/L (3.5-5.1)
--- NOTE | 2020-01-07 06:30 | NUR ---
hg 7.0 paged hospitalist wildlife biostation research ecologist for critical lab result awaiting call back
[2020-01-07] MEDS: INSULIN HUMULIN R 100 UNIT/ML 3ML SQ SCH ×4 (06:41→21:15)
--- NOTE | 2020-01-07 07:03 | NUR ---
informed of hg [address] brenton hussein informed of critical hg level of 7 patient is asymptomatic and has not deviated from baseline order to recheck cbc at noon
[2020-01-07] MEDS: MIDODRINE HCL 5 MG TABLET PO SCH ×3 (08:52→20:20)
[2020-01-07] MEDS: FAMOTIDINE/PF 20 MG/2 ML VIAL IV SCH (08:52)
[2020-01-07] MEDS: LACTULOSE 20 GM/30 ML UDCUP PO SCH ×4 (09:00→20:25)
[2020-01-07 12:10] LABS: HEMATOCRIT 24.5 % (36-48); MEAN CORPUSCULAR HEMOGLOBIN 32.4 pg (27.0-33.0); MEAN CORPUSCULAR HGB CONC 31.4 g/dL (32.0-36.0); MEAN CORPUSCULAR VOLUME 102.9 fL (79-99); RED BLOOD CELL COUNT(AUTO) 2.38 MIL/uL (4.00-5.50); WHITE BLOOD COUNT (AUTO) 4.1 K/uL (4.8-10.8)
[2020-01-07] MEDS: KETOROLAC TROMETHAMINE 15MG/ML IV PRN (14:33)
--- NOTE | 2020-01-07 20:00 | NUR ---
PATIENT DROWSY. STATES SHE IS TIRED TODAY. A/OX3. ANSWERS QUESTIONS APPROPRIATELY. BP REMAINS LOW. NON SYMPTOMATIC. MD AWARE.
--- NOTE | 2020-01-07 23:30 | NUR ---
PATIENT C/O NAUSEA AND VOMITING. ANTIEMESIS MEDICATION ADMINISTERED. WILL CONTINUE TO MONITOR.
[2020-01-08 03:41] VITALS: BP 81/48
[2020-01-08 04:55] LABS: PHOSPHORUS 5.2 mg/dL (2.5-4.9); POTASSIUM 3.7 mmol/L (3.5-5.1)
[2020-01-08 06:00] VITALS: BP 110/40
[2020-01-08] MEDS: INSULIN HUMULIN R 100 UNIT/ML 3ML SQ SCH ×4 (06:20→21:28)
[2020-01-08 08:00] VITALS: BP 87/48
[2020-01-08] MEDS: MIDODRINE HCL 5 MG TABLET PO SCH ×3 (09:34→20:30)
[2020-01-08] MEDS: FAMOTIDINE/PF 20 MG/2 ML VIAL IV SCH (09:34)
[2020-01-08] MEDS: LACTULOSE 20 GM/30 ML UDCUP PO SCH ×3 (09:34→20:29)
[2020-01-08 11:49] VITALS: BP 82/51
[2020-01-08 16:00] VITALS: BP 86/41
[2020-01-08 19:40] VITALS: BP 85/50
[2020-01-08] MEDS: ACETAMINOPHEN 325 MG TAB PO PRN (23:13)
--- NOTE | 2020-01-09 03:50 | NUR ---
A/OX3. ANSWERS QUESTIONS APPROPRIATELY. BP REMAINS LOW. NON SYMPTOMATIC. MD AWARE.
[2020-01-09 04:03] VITALS: BP 101/50
[2020-01-09 04:49] LABS: BASOPHILS % (AUTO) 0.3 % (0.0-5.0); EOSINOPHILS % (AUTO) 2.4 % (0.0-8.0); HEMATOCRIT 25.7 % (36-48); LYMPHOCYTES % (AUTO) 18.3 % (21.0-51.0); MEAN CORPUSCULAR HEMOGLOBIN 31.9 pg (27.0-33.0); MEAN CORPUSCULAR HGB CONC 31.9 g/dL (32.0-36.0); MONOCYTES % (AUTO) 10.7 % (3.0-13.0); PLATELET COUNT (AUTO) 43 K/uL (130-400); RED BLOOD CELL COUNT(AUTO) 2.57 MIL/uL (4.00-5.50); RED CELL DISTRIBUTION WIDTH 18.4 % (11.0-15.5); WHITE BLOOD COUNT (AUTO) 2.9 K/uL (4.8-10.8)
[2020-01-09 04:58] LABS: CREATININE 6.2 mg/dL (0.5-1.5); POTASSIUM 3.5 mmol/L (3.5-5.1)
[2020-01-09 05:06] LABS: BASOPHILS % (MANUAL) 4 % (0-2); EOSINOPHILS % (MANUAL) 4 % (1-6); LYMPHOCYTES % (MANUAL) 12 % (22-44); MAN.DIFF COMMENT-IMPRESSION MANUAL DIFFERENTIAL; MONOCYTES % (MANUAL) 12 % (2-9); PLATELET MORPHOLOGY COMMENT DECREASED; SEGMENTED NEUTROPHILS % 68 % (40-70)
[2020-01-09] MEDS: INSULIN HUMULIN R 100 UNIT/ML 3ML SQ SCH ×3 (05:23→16:30)
[2020-01-09 08:00] VITALS: BP 78/38
--- NOTE | 2020-01-09 08:50 | NUR ---
HOSPICE Sw left message for daughter in law Azeb Newberryno [phone]. Waiting for call back
[2020-01-09] MEDS: FAMOTIDINE/PF 20 MG/2 ML VIAL IV SCH (09:00)
[2020-01-09] MEDS: MIDODRINE HCL 5 MG TABLET PO SCH ×2 (09:00→15:54)
[2020-01-09] MEDS: LACTULOSE 20 GM/30 ML UDCUP PO SCH ×2 (09:00→14:00)
--- NOTE | 2020-01-09 10:13 | NUR ---
CM NOTE/HOSPICE REFUSED PER SW, PATIENT REFUSING HOSPICE AT THE MOMENT AND WANTS TO GO HOME. DR. RIVERA MADE AWARE BY SW.
--- NOTE | 2020-01-09 10:44 | NUR ---
REFUSED HOSPICE Sw met with pt who is alert and oriented. Pt reports no one has talked to her about hospice and she does not want to stop dialysis. Sw educated on hospice services and pt again, refused hospice and stated that she wanted to continue with dialysis treatments. Dr Arcos informed of this and states pt can dc home. CM informed
[2020-01-09] MEDS ORDERED: ALBUMIN (HUMAN) 25% 200 ML IV ONE (11:57)
[2020-01-09 12:00] VITALS: BP 91/51
[2020-01-09 17:53] VITALS: BP 83/53
--- NOTE | 2020-01-09 18:35 | NUR ---
DISCHARGE DISCHARGE INSTRUCTIONS GIVEN TO PATIENT AND HER DAUGHTER VIA TELEPHONE, BOTH VERBALIZED UNDERSTANDING. BP 83/53 WHICH HAS BEEN BASELINE FOR PATIENT. THE MD'S ARE AWARE OF LOW END BLOOD PRESSURES, PATIENT HAS REFUSED HOSPICE AT THIS TIME. NO NEW MEDICATIONS PRESCRIBED. PATIENT IS TO FOLLOW UP WITH DR MATOS IN 1 WEEK HOWEVER SHE NEEDS A REFERRAL FROM HER PRIMARY MD. DR COOPER OFFICE HAS BEEN MADE AWARE OF REFERRAL AND THEY WILL CONTACT PATIENT. 2 IV'S HAVE BEEN REMOVED, NO BLEEDING NOTED. TELEPAK DISCONTINUED.
== END 2020-01-09 18:52 | disposition home or self-care (01) | DRG 562 ==
LOC: EDH 10:23 → EDHIP 13:44 → 4BH 01-04 15:24
PROVIDERS: ADMIT Internal Medicine; ATTEND Internal Medicine
PROC: 5A1D70Z Performance of Urinary Filtration, Intermittent, Less than 6 Hours Per Day (ICD-10-PCS; 2020-01-03)
PROC: 0W9G3ZZ Drainage of Peritoneal Cavity, Percutaneous Approach (ICD-10-PCS; 2020-01-03)
PROC: 5A1D70Z Performance of Urinary Filtration, Intermittent, Less than 6 Hours Per Day (ICD-10-PCS; 2020-01-04)
PROC: 5A1D70Z Performance of Urinary Filtration, Intermittent, Less than 6 Hours Per Day (ICD-10-PCS; 2020-01-05)
PROC: 30233N1 Transfusion of Nonautologous Red Blood Cells into Peripheral Vein, Percutaneous Approach (ICD-10-PCS; principal; 2020-01-06)
PROC: 5A1D70Z Performance of Urinary Filtration, Intermittent, Less than 6 Hours Per Day (ICD-10-PCS; 2020-01-06)
DX: S82.145A Nondisplaced bicondylar fracture of left tibia, initial encounter for closed fracture (principal); N18.6 End stage renal disease; G93.41 Metabolic encephalopathy; R18.8 Other ascites; I12.0 Hypertensive chronic kidney disease with stage 5 chronic kidney disease or end stage renal disease; D61.818 Other pancytopenia; E46 Unspecified protein-calorie malnutrition; E11.22 Type 2 diabetes mellitus with diabetic chronic kidney disease; D69.59 Other secondary thrombocytopenia; R53.81 Other malaise; K21.9 Gastro-esophageal reflux disease without esophagitis; D72.819 Decreased white blood cell count, unspecified; E11.51 Type 2 diabetes mellitus with diabetic peripheral angiopathy without gangrene; E78.5 Hyperlipidemia, unspecified; K72.90 Hepatic failure, unspecified without coma; K74.60 Unspecified cirrhosis of liver; Z68.27 Body mass index [BMI] 27.0-27.9, adult; W01.0XXA Fall on same level from slipping, tripping and stumbling without subsequent striking against object, initial encounter; Y93.89 Activity, other specified; Y92.098 Other place in other non-institutional residence as the place of occurrence of the external cause; Y99.8 Other external cause status; Z99.2 Dependence on renal dialysis; Z79.899 Other long term (current) drug therapy; Z91.19 Patient's noncompliance with other medical treatment and regimen; Z83.3 Family history of diabetes mellitus; Z82.49 Family history of ischemic heart disease and other diseases of the circulatory system
CPT/HCPCS: 36415; 49083; 70450; 71045; 72125; 73562; 73600; 80048; 80053; 80074; 80076; 82140; 82270; 82533; 82550; 82948; 83735; 84100; 84443; 84484; 85014; 85018; 85025; 85027; 85610; 85730; 86850; 86900; 86901; 86922; 87071; 87205; 89051; 90935; 93005; 96365; G0378; J1644; J1815; J1885; J2405; J3010; J3490; P9016; P9046; P9047

== ENCOUNTER 2020-01-16 19:51 | Inpatient (IN) | payer OTHER, MEDICARE ==
[~2020-01-16] VITALS: Ht 157.5 cm; Wt 71.1 kg
[~2020-01-16 19:51] MED LIST changes: +FISH1CAP27 PO; +MIDO10TA PO; +ONDA4TAB10 PO; +RIFA550T PO; +SPIR50TA PO; +VITA-328 PO; +VITAD50000 PO
[2020-01-16 20:17] LABS: BASOPHILS % (AUTO) 0.4 % (0.0-5.0); EOSINOPHILS % (AUTO) 0.4 % (0.0-8.0); HEMATOCRIT 25.9 % (36-48); LYMPHOCYTES % (AUTO) 6.7 % (21.0-51.0); MEAN CORPUSCULAR HEMOGLOBIN 31.8 pg (27.0-33.0); MEAN CORPUSCULAR VOLUME 99.2 fL (79-99); MONOCYTES % (AUTO) 7.1 % (3.0-13.0); NEUTROPHILS % (AUTO) 85.1 % (40.0-77.0); PLATELET COUNT (AUTO) 71 K/uL (130-400); RED BLOOD CELL COUNT(AUTO) 2.61 MIL/uL (4.00-5.50); RED CELL DISTRIBUTION WIDTH 18.6 % (11.0-15.5); WHITE BLOOD COUNT (AUTO) 7.3 K/uL (4.8-10.8)
[2020-01-16 20:25] LABS: CREATININE 4.5 mg/dL (0.5-1.5); POTASSIUM 4.6 mmol/L (3.5-5.1)
[2020-01-16 20:28] LABS: INR 1.2 (0.85-1.15); PARTIAL THROMBOPLASTIN TIME 31.1 SEC (26.3-35.5); PROTHROMBIN TIME 12.9 SEC (9.6-11.6)
[2020-01-16 20:34] LABS: ALBUMIN 2.6 g/dL (3.5-5.0); BILIRUBIN,TOTAL 1.9 mg/dL (0.2-1.0); TOTAL PROTEIN, SERUM 6.7 g/dL (6.0-8.3)
[2020-01-16] MEDS ORDERED: CEFTRIAXONE SODIUM 1 GM IV SCH (22:45)
[2020-01-16] MEDS ORDERED: MORPHINE SULFATE 2 MG/ML 1ML SYG IV PRN (22:45)
[2020-01-16] MEDS ORDERED: AZITHROMYCIN 500MG+NS 250ML 250 ML IV SCH (22:45)
[2020-01-16] MEDS ORDERED: LACTULOSE 20 GM/30 ML UDCUP PO PRN (22:45)
[2020-01-16] MEDS ORDERED: CEFTRIAXONE SODIUM 1 GM ONE (23:02)
[2020-01-16] MEDS ORDERED: AZITHROMYCIN 500MG+NS 250ML 250 ML IV ONE (23:27)
[2020-01-16] MEDS ORDERED: INSULIN HUMULIN R 100 UNIT/ML 3ML ONE (23:28)
[2020-01-17] VITALS (26 sets, daily range): BP systolic 71–106; BP diastolic 38–61
[2020-01-17] MEDS ORDERED: SODIUM CHLORIDE 0.9% 500ML 500 ML IV SCH (01:30)
[2020-01-17 06:15] LABS: BASOPHILS % (AUTO) 0.5 % (0.0-5.0); EOSINOPHILS % (AUTO) 0.6 % (0.0-8.0); HEMATOCRIT 25.4 % (36-48); LYMPHOCYTES % (AUTO) 10.9 % (21.0-51.0); MEAN CORPUSCULAR HEMOGLOBIN 31.7 pg (27.0-33.0); MEAN CORPUSCULAR HGB CONC 31.1 g/dL (32.0-36.0); MONOCYTES % (AUTO) 9.4 % (3.0-13.0); NEUTROPHILS % (AUTO) 78.3 % (40.0-77.0); PLATELET COUNT (AUTO) 65 K/uL (130-400); RED BLOOD CELL COUNT(AUTO) 2.49 MIL/uL (4.00-5.50); RED CELL DISTRIBUTION WIDTH 18.9 % (11.0-15.5); WHITE BLOOD COUNT (AUTO) 6.4 K/uL (4.8-10.8)
[2020-01-17] MEDS: INSULIN HUMULIN R 100 UNIT/ML 3ML SQ SCH ×4 (06:23→21:08)
[2020-01-17 06:39] LABS: POTASSIUM 4.3 mmol/L (3.5-5.1)
[2020-01-17 06:40] LABS: INR 1.32 (0.85-1.15); PARTIAL THROMBOPLASTIN TIME 33.7 SEC (26.3-35.5); PROTHROMBIN TIME 14.1 SEC (9.6-11.6)
--- NOTE | 2020-01-17 07:26 | NUR ---
Patient received around 0645 via bed ,on air mattress.Bedside report given to incoming NOD using SBAR, all questions answered. notified regarding patient V/S at this time.
--- NOTE | 2020-01-17 07:30 | NUR ---
DR ABARCA AT NURSING STATION AND AWARE OF PATIENT BP; STATES HE WILL SEE PATIENT SHORTLY; PATIENT IS SLEEPING BUT AROUSABLE; STATES MINIMAL PAIN AT THIS TIME
[2020-01-17] MEDS ORDERED: METOPROLOL TARTRATE 25 MG TAB PO SCH (09:00)
[2020-01-17] MEDS: ASPIRIN 81MG TAB.CHEW PO SCH (09:36)
[2020-01-17] MEDS: FAMOTIDINE 20MG TAB 20 MG TAB PO SCH (09:36)
[2020-01-17] MEDS: MIDODRINE HCL 5 MG TABLET PO SCH ×3 (09:37→21:01)
--- NOTE | 2020-01-17 10:30 | NUR ---
RE: PARACENTESIS PATIENT SCHEDULED FOR PARACENTESIS. TROPONIN LEVEL 5.14 AT THIS TIME AND HYPOTENSIVE. PATIENT BEING TRANSFERRED TO ICU. DR Tal SALGADO NOTIFIED AND STATED TO PROCEED WITH PARACENTESIS ONCE CLEARED BY ELECTRONIC ENGINEERING TECHNICIAN. Radha TINEO RN NOTIFIED OF PROCEDURE OUTCOME.
[2020-01-17] MEDS: ZOSYN 3.375GM+NS 50ML 50 ML IV SCH ×2 (10:34→21:00)
--- NOTE | 2020-01-17 10:50 | NUR ---
transfer PATIENT MOVED TO ROOM 209, ICU, D/T SEPTIC VS CARDIOGENIC SHOCK. PATIENT REMAINS AAOx3; STAT 2D ECHO DONE AT BEDSIDE BEFORE TRANSFER TO ICU; SON NOTIFIED OF TRANSFER VIA PHONE; REPORT GIVEN TO PAT BURKETT VIA TELEPHONE; PATIENT SEEN TODAY BY DR LYONS, DR ANGUIANO, AND DR ABARCA; DR ANGUIANO AND DR LYONS AT BEDSIDE WHILE 2D ECHO WAS DONE AT BEDSIDE
[2020-01-17] MEDS ORDERED: LIDOCAINE HCL 1% 20 ML VIAL ONE (11:28)
--- NOTE | 2020-01-17 11:49 | NUR ---
BISMARK PLAN PATIENT TRANSFERRED TO SECOND FLOOR FOR SEPSIS. VISITED WITH PATIENT. NURSING SETTING PATIENT UP. MADAY WILL CONTINUE TO FOLLOW. PENDING PATIENT TO BE STABLE. Addendum: 01/17/20 at 1151 by KATHARINA LIU RN CM Amended: Links added.
--- NOTE | 2020-01-17 11:56 | NUR ---
TRANSFERRED TO ICU DUE TO HYPOTENSION. SERENA IN TO SEE PT CONSENT FOR PARACENTESIS DONE
[2020-01-17] MEDS ORDERED: ALBUMIN (HUMAN) 25% 100 ML IV SCH (12:15)
[2020-01-17 12:58] LABS: GLUCOSE,BODY FLUID 222 mg/dL (1-40)
[2020-01-17] MEDS: LINEZOLID 600 MG/ISO-OSM 300 ML IV SCH ×2 (13:46→21:49)
[2020-01-17] MEDS: ALBUMIN (HUMAN) 25% 100 ML IV SCH ×2 (13:51→21:49)
--- NOTE | 2020-01-17 14:00 | NUR ---
6 FR 3 LUMEN PICC SUCCESSFUL INSERTION TO LEFT BRACHIAL VEIN, USING ASEPTIC TECHNIQUE. INSERTED WITH ONE ATTEMPT, BUT HAD SOME DIFFICULTY ADVANCING TO SVC. CATHETER TIP AT FIRST KEPT TRAVELING NORTH TO JUGULAR. FINALLY ADVANCE TO SVC AFTER MULTIPLE REPOSITIONING. "[place]YE" PER [facility] INDICATES "PICC TIP IN LOWER 1/3 OF SVC OR AT CAVOATRIAL JUNCTION. PICC OK TO USE PER [facility] PROTOCOL. KWADWO WYATT RN AWARE.
[2020-01-17 14:16] LABS: APPEARANCE BODY FLUID CLEAR (CLEAR); BODY FLUID WBC 20 /cu. mm.; COLOR,BODY FLUID YELLOW (LT YELLOW); SPECIMENTYPE,BODY FLUID PARACENTESIS; TOTAL VOLUME,BODY FLUID 22 mL
[2020-01-17 14:17] LABS: BODY FLUID RBC 315 /cu. mm.
[2020-01-17 14:20] LABS: BF LYMPHOCYTE 36 %; BF MESOTHELIAL 20 %
--- NOTE | 2020-01-17 14:30 | NUR ---
UPDATE OF PTS CONDITOIN GIVEN TO DAUGHTER.
[2020-01-17] MEDS: NOREPINEPHRINE 4MG/NS 250ML 250 ML IV SCH (16:23)
--- NOTE | 2020-01-17 16:23 | NUR ---
LEVOPHED DRIP STARTED AT 0.01MCG/KG/MIN
--- NOTE | 2020-01-17 19:05 | NUR ---
HAND OFF REPORT GIVEN TO DG STEWART
[2020-01-17] MEDS: ATORVASTATIN CALCIUM 20 MG TABLET PO SCH (21:01)
[2020-01-18] VITALS (30 sets, daily range): BP systolic 70–123; BP diastolic 25–71
[2020-01-18 03:49] LABS: BASOPHILS % (AUTO) 0.4 % (0.0-5.0); HEMATOCRIT 22.3 % (36-48); LYMPHOCYTES % (AUTO) 11.6 % (21.0-51.0); MEAN CORPUSCULAR HEMOGLOBIN 32.1 pg (27.0-33.0); MEAN CORPUSCULAR HGB CONC 31.8 g/dL (32.0-36.0); MEAN CORPUSCULAR VOLUME 100.9 fL (79-99); MONOCYTES % (AUTO) 9.5 % (3.0-13.0); NEUTROPHILS % (AUTO) 75.2 % (40.0-77.0); PLATELET COUNT (AUTO) 84 K/uL (130-400); RED BLOOD CELL COUNT(AUTO) 2.21 MIL/uL (4.00-5.50); RED CELL DISTRIBUTION WIDTH 18.9 % (11.0-15.5); WHITE BLOOD COUNT (AUTO) 7.4 K/uL (4.8-10.8)
[2020-01-18 04:03] LABS: ALBUMIN 3.3 g/dL (3.5-5.0); BILIRUBIN,TOTAL 2.3 mg/dL (0.2-1.0); CREATININE 5.6 mg/dL (0.5-1.5); MAGNESIUM 2.2 mg/dL (1.80-2.40); PHOSPHORUS 6.6 mg/dL (2.5-4.9); POTASSIUM 4.2 mmol/L (3.5-5.1); TOTAL PROTEIN, SERUM 6.7 g/dL (6.0-8.3)
[2020-01-18 04:10] LABS: INR 1.49 (0.85-1.15); PARTIAL THROMBOPLASTIN TIME 40.1 SEC (26.3-35.5); PROTHROMBIN TIME 15.8 SEC (9.6-11.6)
[2020-01-18] MEDS: ALBUMIN (HUMAN) 25% 100 ML IV SCH (05:53)
[2020-01-18] MEDS: NOREPINEPHRINE 4MG/NS 250ML 250 ML IV SCH (05:53)
[2020-01-18] MEDS: INSULIN HUMULIN R 100 UNIT/ML 3ML SQ SCH ×4 (06:33→22:16)
[2020-01-18] MEDS: ZOSYN 3.375GM+NS 50ML 50 ML IV SCH ×2 (08:18→20:25)
[2020-01-18] MEDS: FAMOTIDINE 20MG TAB 20 MG TAB PO SCH (08:18)
[2020-01-18] MEDS: MIDODRINE HCL 5 MG TABLET PO SCH ×3 (08:18→20:25)
[2020-01-18] MEDS: ASPIRIN 81MG TAB.CHEW PO SCH (08:18)
[2020-01-18] MEDS: ONDANSETRON HCL 4 MG/2 ML VIAL IV PRN (08:18)
--- NOTE | 2020-01-18 12:55 | NUR ---
BISMARK PLAN VISITED WITH PATIENT. PATIENT NOT AWAKE. CALLED DAUGHTER IN LAW NO ANSWER. LET NURSE KNOW THAT I TRIED TO CONTACT FAMILY NO ANSWER. MDAAY WILL CONTINUE TO FOLLOW. Addendum: 01/18/20 at 1257 by KATHARINA LIU RN CM Amended: Links added.
[2020-01-18] MEDS: LINEZOLID 600 MG/ISO-OSM 300 ML IV SCH ×2 (13:53→21:44)
[2020-01-18] MEDS ORDERED: NOREPINEPHRINE 4MG/NS 250ML 250 ML IV SCH (14:15)
[2020-01-18] MEDS ORDERED: NOREPINEPHRINE BITARTRATE 8 MG in SODIUM CHLORIDE 0.9% 250 ML IV SCH (14:30)
[2020-01-18] MEDS: NOREPINEPHRINE BITARTRATE 8 MG/NS 250ML IV SCH ×4 (15:00→22:17)
[2020-01-18] MEDS: ATORVASTATIN CALCIUM 20 MG TABLET PO SCH (20:25)
[2020-01-19] VITALS (25 sets, daily range): BP systolic 81–129; BP diastolic 32–88
[2020-01-19] MEDS: ONDANSETRON HCL 4 MG/2 ML VIAL IV PRN ×2 (04:06→09:48)
[2020-01-19] MEDS: NOREPINEPHRINE BITARTRATE 8 MG/NS 250ML IV SCH ×4 (06:17→15:06)
[2020-01-19] MEDS: INSULIN HUMULIN R 100 UNIT/ML 3ML SQ SCH ×2 (06:26→11:30)
[2020-01-19 08:09] LABS: MEAN CORPUSCULAR HEMOGLOBIN 32.5 pg (27.0-33.0); MEAN CORPUSCULAR HGB CONC 31.9 g/dL (32.0-36.0); NUCLEATED RED BLOOD CELLS 0.3 % (0.0-0.19); RED CELL DISTRIBUTION WIDTH 19.9 % (11.0-15.5); WHITE BLOOD COUNT (AUTO) 7.1 K/uL (4.8-10.8)
[2020-01-19 08:17] LABS: CREATININE 4.2 mg/dL (0.5-1.5); POTASSIUM 3.5 mmol/L (3.5-5.1)
[2020-01-19 08:23] LABS: HEMATOCRIT 20.4 % (36-48)
[2020-01-19] MEDS: LINEZOLID 600 MG/ISO-OSM 300 ML IV SCH (09:15)
[2020-01-19] MEDS: ZOSYN 3.375GM+NS 50ML 50 ML IV SCH (09:15)
[2020-01-19] MEDS: ASPIRIN 81MG TAB.CHEW PO SCH (09:15)
[2020-01-19] MEDS: MIDODRINE HCL 5 MG TABLET PO SCH ×3 (09:15→19:32)
[2020-01-19] MEDS: FAMOTIDINE 20MG TAB 20 MG TAB PO SCH (09:15)
--- NOTE | 2020-01-19 10:08 | NUR ---
DR. ABARCA HERE AND DISCUSSING PATIENT PLAN OF CARE WITH FAMILY MEMBERS AND MORTGAGE LOAN ORIGINATOR ARABELLA. PT'S POA IS DAUGHTER IN LAW TRINO.
--- NOTE | 2020-01-19 10:47 | NUR ---
DCP: HOSPICE Olga recd order for hospice at family request. OLGA also recd call from [facility] that arrangements had already begun as ordered by Dr Cazares at [facility] for services and consents were signed. OOHDNR was signed as well. Family wanting pt home today. Olga called daughter in law Sheri Frazier [phone], MPOA. Sheri verified that this was family plan to get pt home on hospice to pass with family at bedside. Pt has and [address] Walton informed and wanted to talk to Sheri. OLGA called Sheri and Dr Walton talked to her and informed that BP very low and pt on pressors at this time. IF pressors stopped for pt to transport home, she may pass here or in route to home. Sheri informed arrangements could be made for family to see before pressors stopped. OLGA talked to Sheri and explained visitations related to Covid19 restrictions. Sheri stated family understanding of risk of arrest in route, but family would like pt at home since they have should a big family. Family asking if and 4 chilkdren can see pt prior to dc in case pt should pass in route. OLGA left message for domestic housekeeper. Waiting for approval for visitation
--- NOTE | 2020-01-19 11:06 | NUR ---
[place] informed Cecilia vera [place] of plan. [place] ordered and CM making transport arrangements.
--- NOTE | 2020-01-19 11:36 | NUR ---
FAMILY VISITATION and 4 children Barrington, Girma, Octavia and Saqib approved to see pt before she is transferred home by [facility] ICU Director and Kimberly Hernandez. Olga informed John at [employer] of this. Olga spoke to JASMINE Wade. Family to meet Olga at 1:00 at ER.
--- NOTE | 2020-01-19 11:56 | NUR ---
DC PLAN ORDER FOR HOSPICE LET JACQUARD FIXER KNOW. FAMILY ALREADY SET UP HOSPICE WITH [facility]. PLAN IS TO DC HOME. EMS FORMS IN CHART LET NURSE KNOW. MIGHT NOT BE ABLE TO DISCHARGE DUE TO MEDICATION KEEPING BP UP. MD LET FAMILY KNOW THAT PATIENT COULD BEFORE GETTING HOME IF MEDICATION REMOVED. JACQUARD FIXER SPEAKING TO HOUSE TO SEE IF FAMILY CAN VISIT. IF NO THEN DC PLAN IS HOME. Addendum: 01/19/20 at 1158 by KATHARINA LIU RN CM Amended: Links added.
--- NOTE | 2020-01-19 13:00 | NUR ---
Family here to visit with pt prior to dc home with [facility]. waiting on DE to be delivered
[2020-01-19] MEDS ORDERED: NOREPINEPHRINE 4MG/NS 250ML 0 ML IV ONE (14:19)
--- NOTE | 2020-01-19 15:37 | NUR ---
DME AT HOME SW recd call from Cecilia at [facility]. DME is being delivered at this time. Pt can dc at anytime [facility] is ready for pt. Nurse Sarah notified
--- NOTE | 2020-01-19 18:00 | NUR ---
PICC LINE DISCONTINUED WITHOUT INCIDENT OR BLEEDING
--- NOTE | 2020-01-19 19:56 | NUR ---
PT TRANSPORTED HOME WITH HOSPICE VIA EMS. PATIENT AAOX3 , ALERT , APPROPRIATE.
[2020-01-20 09:11] LABS: HEPATITIS A ANTIBODY IGM Negative (Negative); HEPATITIS B CORE IGM Negative (Negative); HEPATITIS Bs ANTIGEN SCREEN P Negative (Negative)
== END 2020-01-19 20:00 | DRG 871 ==
LOC: EDH 19:51 → EDHIP 22:31 → 2DH 01-17 00:15 → 4DH 01-17 06:13 → 2BH 01-17 11:10
PROVIDERS: ADMIT Internal Medicine; ATTEND Internal Medicine
PROC: 5A1D70Z Performance of Urinary Filtration, Intermittent, Less than 6 Hours Per Day (ICD-10-PCS; principal; 2020-01-18)
PROC: 0W9G3ZZ Drainage of Peritoneal Cavity, Percutaneous Approach (ICD-10-PCS; 2020-01-18)
PROC: 02HV33Z Insertion of Infusion Device into Superior Vena Cava, Percutaneous Approach (ICD-10-PCS; 2020-01-18)
DX: A41.9 Sepsis, unspecified organism (principal); J18.9 Pneumonia, unspecified organism; N18.6 End stage renal disease; I21.4 Non-ST elevation (NSTEMI) myocardial infarction; R65.21 Severe sepsis with septic shock; J96.01 Acute respiratory failure with hypoxia; R57.0 Cardiogenic shock; I50.43 Acute on chronic combined systolic (congestive) and diastolic (congestive) heart failure; D68.9 Coagulation defect, unspecified; E87.1 Hypo-osmolality and hyponatremia; I13.2 Hypertensive heart and chronic kidney disease with heart failure and with stage 5 chronic kidney disease, or end stage renal disease; J44.0 Chronic obstructive pulmonary disease with (acute) lower respiratory infection; J98.11 Atelectasis; R18.8 Other ascites; K55.9 Vascular disorder of intestine, unspecified; Z99.2 Dependence on renal dialysis; D64.9 Anemia, unspecified; D69.6 Thrombocytopenia, unspecified; D89.9 Disorder involving the immune mechanism, unspecified; E11.22 Type 2 diabetes mellitus with diabetic chronic kidney disease; E78.5 Hyperlipidemia, unspecified; F02.80 Dementia in other diseases classified elsewhere, unspecified severity, without behavioral disturbance, psychotic disturbance, mood disturbance, and anxiety; G30.9 Alzheimer's disease, unspecified; K21.9 Gastro-esophageal reflux disease without esophagitis; K74.69 Other cirrhosis of liver; Z82.49 Family history of ischemic heart disease and other diseases of the circulatory system; Z20.828 Contact with and (suspected) exposure to other viral communicable diseases; Z66 Do not resuscitate
CPT/HCPCS: 36415; 71045; 74176; 76705; 80048; 80053; 80061; 80074; 82140; 82550; 82945; 82948; 83605; 83615; 83735; 83880; 84100; 84145; 84157; 84484; 85025; 85027; 85378; 85610; 85730; 86140; 87040; 87071; 87205; 87486; 87581; 87633; 87798; 87804; 89051; 90935; 93005; 93306; 93356; 93970; 99291; C1729; C1751; C1894; G0378; J0456; J0696; J1815; J2020; J2405; J2543; J3490; J7050; P9046